=== PATIENT | female | born 1960 | race Caucasian/White ===

== ENCOUNTER 2020-07-25 09:59 | Outpatient (CLI) | payer OTHER, SELFPAY ==
--- NOTE | ~2020-07-25 | NM_ITS ---
EXAMINATION: NM bone SPECT DATE: 07/25/2020 13:52 INDICATION: T12 burst fracture with signal change on MRI. TECHNIQUE: Tc-99m HDP was administered intravenously, the dosage was unavailable at the time of dicta tion and will be added as an addendum. Delayed scintigrams and SPECT imaging was obtained of the tho rax and abdomen. COMPARISON: Thoracic spine MR dated 06/19/[address] dated 06/10/2020 FINDINGS: There is increased uptake throughout the T12 vertebral body corresponding to the relatively recent-ap pearing T12 burst fracture. There is also increased uptake associated with a second relatively recent -appearing fracture extending across the T11 spinous process. Increased uptake associated with a Schm orl's node along the inferior endplate of T9. At each of these locations there is increased fluid sig nal on prior MRI also consistent with relatively recent fracture. Mild increased uptake at the anteri or right first and eighth ribs which could be related to fractures or costochondral calcification. Li anurag degenerative joint centered uptake at the bilateral sternoclavicular cyst at the sternomanubrial articulations. IMPRESSION: 1. Increased uptake associated with relatively recent T12 burst fracture, T11 spinous process fractur e and inferior endplate Schmorl's node at T9. Reviewed, dictated and finalized at location A. IMPRESSION: 1. Increased uptake associated with relatively recent T12 burst fracture, T11 s pinous process fracture and inferior endplate Schmorl's node at T9.
[2020-07-25 10:47] LABS: Basophils Absolute Auto 0.1 K/mm3 (0.0-0.1); Basophils Percent Auto 1.1 % (0.2-1.2); Eosinophils Absolute Auto 0.2 K/mm3 (0-0.3); Eosinophils Percent Auto 2.8 % (0-4.4); Hematocrit 43.6 % (37.0-47.0); Immature Granulocyte Absolute 0.02 K/mm3 (0.00-0.031); Immature Granulocyte Percent A 0.2 % (0-0.5); Lymphocytes Absolute Auto 3.33 K/mm3 (0.9-3.2); Lymphocytes Percent Auto 40.4 % (18.3-44.2); Mean Corpuscular HGB Conc 34.4 g/dl (32-36); Mean Platelet Volume 8.7 fl (7.4-10.4); Monocytes Absolute Auto 0.7 K/mm3 (0.1-0.6); Monocytes Percent Auto 8.7 % (2.6-8.5); Neutrophils Absolute Auto 3.9 K/mm3 (1.3-6.7); Neutrophils Percent Auto 46.8 % (45.5-73.1); Platelet Count Result 338 k/mm3 (150-375); Red Blood Count 4.54 M/mm3 (4.2-5.4); Red Cell Distribution Width 12.1 % (11.5-14.5); White Blood Count 8.3 K/mm3 (4.5-10.0)
[2020-07-25 11:06] LABS: Alanine Aminotransferase 67 U/L (4-35); Albumin Level 4.3 g/dL (3.5-5.1); Alkaline Phosphatase 116 U/L (38-126); Anion Gap 8 mmol/L (8-16); Aspartate Amino Transferase 58 U/L (14-36); Bilirubin,Total 0.4 mg/dL (0.2-1.3); Blood Urea Nitrogen 12 mg/dL (7-17); CRP 0.8 mg/dL (<1.0); Calcium 9.8 mg/dL (8.4-10.2); Carbon Dioxide 26 mmol/L (22-30); Chloride 106 mmol/L (98-107); Estimated Glomerular Filt Rate > 60; Glucose 108 mg/dL (65-105); Potassium 4.3 mmol/L (3.4-5.0); Sodium 140 mmol/L (137-145)
[2020-07-25 11:13] LABS: Erythrocyte Sedimentation Rate 22 mm/hr (0-20)
[2020-07-25 11:18] LABS: T4 Thyroxine 7.83 ug/dL (5.53-11.0)
[2020-07-25 11:32] LABS: Carcinoembryonic Antigen 3.9 ng/mL (0.0-3.0); Total Triiodothyronine (T3) 1.56 NG/ML (0.97-1.69)
[2020-07-29 07:23] LABS: Albumin 4.1 g/dL (3.8-4.8); Alpha 1 Globulin 0.3 g/dL (0.2-0.3); Alpha 2 Globulin 0.7 g/dL (0.5-0.9); Beta 1 Globulin 0.4 g/dL (0.4-0.6); Protein, Total 6.8 g/dL (6.1-8.1)
[2020-07-31 18:51] LABS: Creatinine, Random Urine 51 mg/dL (20-275); Total Protein/Creatinine Ratio 137 mg/g creat (21-161)
== END 2020-07-25 10:00 | disposition home or self-care (01) ==
DX: S22.089A Unspecified fracture of T11-T12 vertebra, initial encounter for closed fracture (principal); X58.XXXA Exposure to other specified factors, initial encounter
CPT/HCPCS: 36415; 78803; 80053; 82378; 82570; 84155; 84156; 84165; 84166; 84436; 84443; 84480; 85025; 85652; 86140; A9561

== ENCOUNTER 2021-10-07 09:06 | Outpatient (CLI) | payer OTHER, SELFPAY ==
--- NOTE | 2021-10-07 | EST_ITS ---
Patient Info Name: Gabriela Lr Age: 60 years : 1960 Gender: Female Ht: 55 in Wt: 150 lbs BSA: 1.66 m2 HR: 84 bpm BP: 154 / 97 mmHg Heart Rhythm: Sinus Rhythm Exam Date: 10/07/2021 10:02 AM Exam Location: [facility] Stress Patient Status: Outpatient Admit Date: 10/07/2021 Staff Ordering Physician: Annamaria, Igor Cruz MD Attending Provider: Annamaria, Igor Cruz MD Exercise Technologist: Grace Myers CT Exercise Physician: Manjeet Rodriges MD Exam Type: CA stress [place] w NM Study Info Indications Z01.818 - Encounter for other preprocedural examination A regadenoson stress test was performed. Summary 1. No abnormal ST/T wave changes with Lexiscan administration. 2. No arrhythmias were observed during the examination. 3. Please correlate with nuclear medicine images, reported separately. 4. No chest discomfort with stress test. Protocol: Lexiscan Stress ECG Details Stage: REST Duration (min): 0 min : 52 sec HR (bpm): 85 SBP (mmHg): 154 DBP (mmHg): 97 Stage: REST Duration (min): 20 min : 51 sec HR (bpm): 83 SBP (mmHg): 154 DBP (mmHg): 97 Stage: STAGE 1 Duration (min): 1 min : 0 sec HR (bpm): 99 SBP (mmHg): 163 DBP (mmHg): 107 Stage: RECOVERY Duration (min): 1 min : 0 sec HR (bpm): 105 SBP (mmHg): 163 DBP (mmHg): 107 Stage: RECOVERY Duration (min): 2 min : 0 sec HR (bpm): 95 SBP (mmHg): 163 DBP (mmHg): 107 Stage: RECOVERY Duration (min): 3 min : 0 sec HR (bpm): 101 SBP (mmHg): 158 DBP (mmHg): 94 Stage: RECOVERY Duration (min): 3 min : 10 sec HR (bpm): 101 SBP (mmHg): 158 DBP (mmHg): 94 Rest HR: 83 bpm Peak HR: 105 bpm Rest Sys BP: 154 mmHg Peak Sys BP: 163 mmHg Max Pred HR: 161 bpm % Max Pred HR: 65 % Target HR: 137 bpm Max RPP: 17,115 bpm*mmHg BP Response: Normal blood pressure response Termination Reason: Completed protocol Cardiac Symptoms: None Total Time: 1 min : 0 sec Rest Iverson BP: 97 mmHg Peak Iverson BP: 107 mmHg Total Dose: 0.4 mg Resting ECG Normal sinus rhythm - normal ECG. Stress ECG No abnormal ST/T wave changes with Lexiscan administration. Arrhythmias No arrhythmias were observed during the examination. Report Signatures
--- NOTE | ~2021-10-07 | NM_ITS ---
EXAMINATION: NM [place] stress w perfusion DATE: 10/07/2021 13:51 INDICATION: Preop. TECHNIQUE: Rest images were obtained following intravenous administration of 9.6 mCi Tc99m tetrofosmi n (Myoview). The patient was infused intravenously with Lexiscan (regadenoson). Then, 30.2 mCi Tc99m tetrofosmin (Myoview) was administered intravenously, and stress images were obtained. Data was recon structed into short axis and horizontal and vertical long axis SPECT images. Gated SPECT images were also obtained. COMPARISON: None. FINDINGS: There is no definite reversible or fixed perfusion abnormality to suggest ischemia or infar ction. There is no segmental wall motion abnormality. Left ventricular ejection fraction measures > 70%. IMPRESSION: 1. No definite ischemia or infarct. 2. Normal left ventricular ejection fraction measuring >70%. Reviewed, dictated and finalized at location A. 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
== END 2021-10-07 09:07 | disposition home or self-care (01) ==
LOC: ANHCARD 09:07
PROVIDERS: Visit Provider Orthopaedic Surgery
DX: Z01.818 Encounter for other preprocedural examination (principal)
CPT/HCPCS: 78452; 93017; A9502; J2785

== ENCOUNTER 2021-10-22 08:50 | Outpatient (CLI) | payer OTHER, SELFPAY ==
[2021-10-22 09:40] LABS: Add Urine Microscopic? YES; Appearance Urine Clear (Clear); Bacteria Urine 2+ /hpf; Bilirubin Urine Negative (Negative); Blood Urine Negative (Negative); Color Urine Yellow (Yellow); Glucose Urine UA Negative (Negative); Hyaline Casts Urine 20-29 /lpf; Ketones Urine Negative (Negative); Leukocyte Esterase Ur Negative LEU/UL (NEGATIVE); Mucus Urine Rare /lpf; Nitrate Urine Positive (Negative); Protein Urine 1+ mg/dL (Negative); RBC Urine 0-2 /hpf (0-2); Specific Grav Ur 1.027 (1.001-1.035); Squamous Epithelial Cell Urine Few /hpf (Few); Urobilinogen Urine Negative mg/dL (<2.0); WBC Urine 0-3 /hpf (0-3)
[2021-10-22 09:42] LABS: Basophils Absolute Auto 0.1 K/mm3 (0.0-0.1); Basophils Percent Auto 1.3 % (0.2-1.2); Eosinophils Absolute Auto 0.3 K/mm3 (0-0.3); Hematocrit 43.9 % (37.0-47.0); Immature Granulocyte Absolute 0.04 K/mm3 (0.00-0.031); Immature Granulocyte Percent A 0.4 % (0-0.5); Lymphocytes Absolute Auto 3.82 K/mm3 (0.9-3.2); Lymphocytes Percent Auto 41.9 % (18.3-44.2); Mean Corpuscular HGB Conc 34.2 g/dl (32-36); Mean Corpuscular Hemoglobin 33.2 pg (26-34); Mean Corpuscular Volume 97.1 fl (80-100); Mean Platelet Volume 8.8 fl (7.4-10.4); Monocytes Absolute Auto 0.7 K/mm3 (0.1-0.6); Monocytes Percent Auto 7.5 % (2.6-8.5); Neutrophils Absolute Auto 4.2 K/mm3 (1.3-6.7); Neutrophils Percent Auto 45.9 % (45.5-73.1); Platelet Count Result 404 k/mm3 (150-375); Red Blood Count 4.52 M/mm3 (4.2-5.4); Red Cell Distribution Width 12.8 % (11.5-14.5); White Blood Count 9.1 K/mm3 (4.5-10.0)
[2021-10-22 09:46] LABS: INR 0.9
[2021-10-22 09:47] LABS: Partial Thromboplastin Time 28.6 SECONDS (22.3-36.8)
[2021-10-22 09:50] LABS: Alanine Aminotransferase 57 U/L (4-35); Albumin Level 4.5 g/dL (3.5-5.1); Alkaline Phosphatase 128 U/L (38-126); Anion Gap 11 mmol/L (8-16); Aspartate Amino Transferase 59 U/L (14-36); Bilirubin,Total 0.5 mg/dL (0.2-1.3); Blood Urea Nitrogen 17 mg/dL (7-17); Calcium 9.8 mg/dL (8.4-10.2); Carbon Dioxide 21 mmol/L (22-30); Chloride 110 mmol/L (98-107); Estimated Glomerular Filt Rate 51; Glucose 124 mg/dL (65-110); Potassium 3.9 mmol/L (3.4-5.0); Sodium 142 mmol/L (137-145)
[2021-10-22 10:10] LABS: Prealbumin 38.2 mg/dL (17.6-36.0)
[2021-10-22 10:15] LABS: Hemoglobin A1C 5.6 % (<5.7)
[2021-10-22 10:19] LABS: Vitamin D 25 Hydroxy 88.5 ng/mL
[2021-10-22 10:30] LABS: Hepatitis B Surface Antigen Negative (Negative)
[2021-10-22 10:31] LABS: HIV 1/2 Ab P24 Ag Result Negative (Negative)
[2021-10-22 10:36] LABS: HAV RESULT Negative (Negative); Hepatitis B Core IgM Result Negative (Negative)
[2021-10-22 10:47] LABS: Hepatitis C Virus Antibody Negative (Negative)
== END 2021-10-22 08:51 | disposition home or self-care (01) ==
PROVIDERS: Visit Provider Orthopaedic Surgery
DX: M47.14 Other spondylosis with myelopathy, thoracic region (principal)
CPT/HCPCS: 36415; 80053; 80074; 81001; 82306; 83036; 84134; 85025; 85610; 85730; 86703; 87077; 87081; 87086; 87186; G0432

== ENCOUNTER 2021-10-29 10:48 | Outpatient (CLI) | payer OTHER, SELFPAY ==
--- NOTE | ~2021-10-29 | XR_ITS ---
XR chest 2V DATE: 10/29/2021 11:09 INDICATION: Preoperative evaluation TECHNIQUE: PA and lateral views COMPARISON: None FINDINGS: Normal heart size. Aortic arch calcification. No hilar or mediastinal enlargement. No pulmonary infiltrate or consolidation, pleural effusion or pulmonary vascular congestion or pneumo thorax. Probable chronic moderate anterior wedge compression fracture deformity of T12. Osteopenia. IMPRESSION: No active cardiopulmonary disease Probable chronic compression fracture deformity of T12 Reviewed, dictated and finalized at location A. 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
== END 2021-10-29 10:49 | disposition home or self-care (01) ==
LOC: ANHIMG 10:54
DX: Z01.818 Encounter for other preprocedural examination (principal)
CPT/HCPCS: 71046

== ENCOUNTER 2021-11-10 10:47 | Outpatient (CLI) | payer OTHER, SELFPAY ==
[2021-11-10 11:18] LABS: Basophils Absolute Auto 0.1 K/mm3 (0.0-0.1); Basophils Percent Auto 0.9 % (0.2-1.2); Eosinophils Absolute Auto 0.2 K/mm3 (0-0.3); Eosinophils Percent Auto 2.6 % (0-4.4); Hematocrit 43.7 % (37.0-47.0); Hemoglobin 14.7 g/dL (12.0-15.0); Immature Granulocyte Absolute 0.04 K/mm3 (0.00-0.031); Immature Granulocyte Percent A 0.4 % (0-0.5); Lymphocytes Absolute Auto 3.21 K/mm3 (0.9-3.2); Lymphocytes Percent Auto 35.2 % (18.3-44.2); Mean Corpuscular HGB Conc 33.6 g/dl (32-36); Mean Corpuscular Hemoglobin 33.2 pg (26-34); Mean Corpuscular Volume 98.6 fl (80-100); Mean Platelet Volume 8.5 fl (7.4-10.4); Monocytes Absolute Auto 0.9 K/mm3 (0.1-0.6); Monocytes Percent Auto 9.4 % (2.6-8.5); Neutrophils Absolute Auto 4.7 K/mm3 (1.3-6.7); Neutrophils Percent Auto 51.5 % (45.5-73.1); Platelet Count Result 329 k/mm3 (150-375); Red Blood Count 4.43 M/mm3 (4.2-5.4); Red Cell Distribution Width 12.6 % (11.5-14.5); White Blood Count 9.1 K/mm3 (4.5-10.0)
[2021-11-10 11:27] LABS: Add Urine Microscopic? YES; Appearance Urine Clear (Clear); Bacteria Urine Trace /hpf; Bilirubin Urine 1+ (Negative); Blood Urine Negative (Negative); Color Urine Yellow (Yellow); Glucose Urine UA Negative (Negative); Ketones Urine Negative (Negative); Leukocyte Esterase Ur Negative LEU/UL (NEGATIVE); Mucus Urine Rare /lpf; Nitrate Urine Negative (Negative); Protein Urine Negative (Negative); Specific Grav Ur 1.027 (1.001-1.035); Squamous Epithelial Cell Urine Few /hpf (Few); Urobilinogen Urine Negative mg/dL (<2.0); WBC Urine 0-3 /hpf (0-3)
[2021-11-10 11:34] LABS: INR 0.9; Prothrombin Time 12.1 Seconds (11.1-14.7)
[2021-11-10 11:35] LABS: Partial Thromboplastin Time 28.4 SECONDS (22.3-36.8)
== END 2021-11-10 10:48 | disposition home or self-care (01) ==
LOC: ANHLAB 10:54
PROVIDERS: Visit Provider Orthopaedic Surgery
DX: Z00.00 Encounter for general adult medical examination without abnormal findings (principal)
CPT/HCPCS: 36415; 81001; 85025; 85610; 85730; 87086

== ENCOUNTER 2022-02-04 09:33 | Outpatient (CLI) | payer OTHER, SELFPAY ==
[2022-02-04 10:37] LABS: Bilirubin Urine Negative (Negative); Blood Urine Negative (Negative); Color Urine Yellow (Yellow); Glucose Urine UA Negative (Negative); Ketones Urine Negative (Negative); Leukocyte Esterase Ur Negative LEU/UL (Negative); Nitrate Urine Negative (Negative); Protein Urine Trace mg/dL (Negative); Specific Grav Ur 1.025 (1.001-1.035); Urobilinogen Urine 0.2 mg/dL (<2.0); pH Urine 5.5 (5.0-9.0)
[2022-02-04 10:38] LABS: Basophils Absolute Auto 0.1 K/mm3 (0.0-0.1); Basophils Percent Auto 1.1 % (0.2-1.2); Eosinophils Absolute Auto 0.3 K/mm3 (0-0.3); Eosinophils Percent Auto 3.2 % (0-4.4); Hematocrit 43.8 % (37.0-47.0); Hemoglobin 14.8 g/dL (12.0-15.0); Immature Granulocyte Absolute 0.04 K/mm3 (0.00-0.031); Immature Granulocyte Percent A 0.4 % (0-0.5); Lymphocytes Absolute Auto 4.07 K/mm3 (0.9-3.2); Lymphocytes Percent Auto 41.2 % (18.3-44.2); Mean Corpuscular HGB Conc 33.8 g/dl (32-36); Mean Corpuscular Hemoglobin 33.2 pg (26-34); Mean Corpuscular Volume 98.2 fl (80-100); Mean Platelet Volume 9.1 fl (7.4-10.4); Monocytes Absolute Auto 0.8 K/mm3 (0.1-0.6); Neutrophils Absolute Auto 4.6 K/mm3 (1.3-6.7); Neutrophils Percent Auto 46.1 % (45.5-73.1); Platelet Count Result 360 k/mm3 (150-375); Red Blood Count 4.46 M/mm3 (4.2-5.4); Red Cell Distribution Width 12.5 % (11.5-14.5); White Blood Count 9.9 K/mm3 (4.5-10.0)
[2022-02-04 10:40] LABS: Add Urine Microscopic? YES; Appearance Urine Sl Cloudy (Clear)
[2022-02-04 10:46] LABS: Prothrombin Time 12.6 Seconds (11.1-14.7)
[2022-02-04 10:47] LABS: Partial Thromboplastin Time 29.4 SECONDS (22.3-36.8)
[2022-02-04 10:52] LABS: Bacteria Urine Trace /hpf; Mucus Urine Rare /lpf; RBC Urine 0-2 /hpf (0-2); Squamous Epithelial Cell Urine Many /hpf (Few); WBC Urine 0-3 /hpf
[2022-02-04 11:16] LABS: Alanine Aminotransferase 75 U/L (4-35); Albumin Level 4.7 g/dL (3.5-5.1); Alkaline Phosphatase 129 U/L (38-126); Anion Gap 9 mmol/L (8-16); Aspartate Amino Transferase 76 U/L (14-36); Bilirubin,Total 0.7 mg/dL (0.2-1.3); Blood Urea Nitrogen 15 mg/dL (7-17); Calcium 9.2 mg/dL (8.4-10.2); Carbon Dioxide 24 mmol/L (22-30); Chloride 108 mmol/L (98-107); Estimated Glomerular Filt Rate > 60; Glucose 118 mg/dL (65-110); Potassium 4.1 mmol/L (3.4-5.0); Sodium 141 mmol/L (137-145)
== END 2022-02-04 09:34 | disposition home or self-care (01) ==
LOC: ANHLAB 09:36
PROVIDERS: Visit Provider Orthopaedic Surgery
DX: M51.14 Intervertebral disc disorders with radiculopathy, thoracic region (principal)
CPT/HCPCS: 36415; 80053; 81001; 85025; 85610; 85730

== ENCOUNTER 2022-03-04 11:21 | Outpatient (CLI) | payer OTHER, SELFPAY ==
[2022-03-04 12:03] LABS: Basophils Absolute Auto 0.1 K/mm3 (0.0-0.1); Basophils Percent Auto 0.9 % (0.2-1.2); Eosinophils Absolute Auto 0.3 K/mm3 (0-0.3); Eosinophils Percent Auto 2.6 % (0-4.4); Hematocrit 37.6 % (37.0-47.0); Immature Granulocyte Absolute 0.04 K/mm3 (0.00-0.031); Immature Granulocyte Percent A 0.4 % (0-0.5); Lymphocytes Absolute Auto 3.09 K/mm3 (0.9-3.2); Lymphocytes Percent Auto 30.9 % (18.3-44.2); Mean Corpuscular HGB Conc 31.9 g/dl (32-36); Mean Corpuscular Hemoglobin 31.9 pg (26-34); Monocytes Absolute Auto 1.1 K/mm3 (0.1-0.6); Monocytes Percent Auto 11.1 % (2.6-8.5); Neutrophils Absolute Auto 5.4 K/mm3 (1.3-6.7); Neutrophils Percent Auto 54.1 % (45.5-73.1); Nucleated Red Blood Cells Perc 0.3 % (0.0-0.2); Platelet Count Result 555 k/mm3 (150-375); Red Blood Count 3.76 M/mm3 (4.2-5.4); Red Cell Distribution Width 12.8 % (11.5-14.5)
[2022-03-04 12:16] LABS: Alanine Aminotransferase 25 U/L (6-35); Albumin Level 4.3 g/dL (3.5-5.1); Alkaline Phosphatase 140 U/L (38-126); Anion Gap 7 mmol/L (8-16); Aspartate Amino Transferase 40 U/L (14-36); Bilirubin,Total 0.3 mg/dL (0.2-1.3); Blood Urea Nitrogen 8 mg/dL (7-17); CRP 7.3 mg/dL (<1.0); Calcium 9.2 mg/dL (8.4-10.2); Carbon Dioxide 27 mmol/L (22-30); Chloride 103 mmol/L (98-107); Estimated Glomerular Filt Rate > 60; Glucose 104 mg/dL (65-110); Potassium 3.6 mmol/L (3.4-5.0); Sodium 137 mmol/L (137-145)
[2022-03-04 12:21] LABS: Prealbumin 14.2 mg/dL (17.6-36.0)
[2022-03-04 12:29] LABS: Erythrocyte Sedimentation Rate > 140 mm/hr (0-20)
== END 2022-03-04 11:22 | disposition home or self-care (01) ==
PROVIDERS: PCP Physician Assistant
DX: Z98.1 Arthrodesis status (principal)
CPT/HCPCS: 36415; 80053; 84134; 85025; 85652; 86140

== ENCOUNTER 2022-03-10 10:50 | Outpatient (CLI) | payer OTHER, SELFPAY ==
[2022-03-10 11:36] LABS: Basophils Absolute Auto 0.1 K/mm3 (0.0-0.1); Eosinophils Absolute Auto 0.3 K/mm3 (0-0.3); Eosinophils Percent Auto 2.5 % (0-4.4); Hematocrit 41.2 % (37.0-47.0); Hemoglobin 13.1 g/dL (12.0-15.0); Immature Granulocyte Absolute 0.04 K/mm3 (0.00-0.031); Immature Granulocyte Percent A 0.4 % (0-0.5); Lymphocytes Percent Auto 28.7 % (18.3-44.2); Mean Corpuscular HGB Conc 31.8 g/dl (32-36); Mean Corpuscular Hemoglobin 31.6 pg (26-34); Mean Corpuscular Volume 99.5 fl (80-100); Mean Platelet Volume 8.6 fl (7.4-10.4); Monocytes Absolute Auto 0.9 K/mm3 (0.1-0.6); Monocytes Percent Auto 8.4 % (2.6-8.5); Platelet Count Result 579 k/mm3 (150-375); Red Blood Count 4.14 M/mm3 (4.2-5.4); Red Cell Distribution Width 12.6 % (11.5-14.5); White Blood Count 10.1 K/mm3 (4.5-10.0)
[2022-03-10 11:51] LABS: Alanine Aminotransferase 43 U/L (6-35); Albumin Level 4.4 g/dL (3.5-5.1); Alkaline Phosphatase 153 U/L (38-126); Anion Gap 9 mmol/L (8-16); Aspartate Amino Transferase 75 U/L (14-36); Bilirubin,Total 0.2 mg/dL (0.2-1.3); Blood Urea Nitrogen 9 mg/dL (7-17); CRP 1.8 mg/dL (<1.0); Calcium 9.5 mg/dL (8.4-10.2); Carbon Dioxide 24 mmol/L (22-30); Chloride 108 mmol/L (98-107); Estimated Glomerular Filt Rate > 60; Glucose 125 mg/dL (65-110); Sodium 141 mmol/L (137-145)
[2022-03-10 11:55] LABS: Prealbumin 26.5 mg/dL (17.6-36.0)
[2022-03-10 12:24] LABS: Erythrocyte Sedimentation Rate 89 mm/hr (0-20)
== END 2022-03-10 10:51 | disposition home or self-care (01) ==
PROVIDERS: PCP Physician Assistant
DX: M43.26 Fusion of spine, lumbar region (principal)
CPT/HCPCS: 36415; 80053; 84134; 85025; 85652; 86140

== ENCOUNTER 2022-03-17 12:01 | Outpatient (CLI) | payer OTHER, SELFPAY ==
[2022-03-17 13:06] LABS: Alanine Aminotransferase 36 U/L (6-35); Albumin Level 4.1 g/dL (3.5-5.1); Alkaline Phosphatase 160 U/L (38-126); Anion Gap -5 mmol/L (8-16); Aspartate Amino Transferase 48 U/L (14-36); Basophils Absolute Auto 0.1 K/mm3 (0.0-0.1); Basophils Percent Auto 1.3 % (0.2-1.2); Bilirubin,Total 0.2 mg/dL (0.2-1.3); Blood Urea Nitrogen 13 mg/dL (7-17); CRP 1.5 mg/dL (<1.0); Calcium 9.3 mg/dL (8.4-10.2); Carbon Dioxide 34 mmol/L (22-30); Chloride 107 mmol/L (98-107); Eosinophils Absolute Auto 0.4 K/mm3 (0-0.3); Eosinophils Percent Auto 4.6 % (0-4.4); Estimated Glomerular Filt Rate > 60; Glucose 100 mg/dL (65-110); Hematocrit 40.6 % (37.0-47.0); Hemoglobin 13.1 g/dL (12.0-15.0); Immature Granulocyte Absolute 0.02 K/mm3 (0.00-0.031); Immature Granulocyte Percent A 0.2 % (0-0.5); Lymphocytes Absolute Auto 3.57 K/mm3 (0.9-3.2); Lymphocytes Percent Auto 40.1 % (18.3-44.2); Mean Corpuscular HGB Conc 32.3 g/dl (32-36); Mean Corpuscular Hemoglobin 31.6 pg (26-34); Mean Corpuscular Volume 98.1 fl (80-100); Mean Platelet Volume 9.2 fl (7.4-10.4); Monocytes Absolute Auto 0.8 K/mm3 (0.1-0.6); Neutrophils Percent Auto 44.8 % (45.5-73.1); Platelet Count Result 384 k/mm3 (150-375); Potassium 3.8 mmol/L (3.4-5.0); Red Blood Count 4.14 M/mm3 (4.2-5.4); Red Cell Distribution Width 12.5 % (11.5-14.5); Sodium 136 mmol/L (137-145); White Blood Count 8.9 K/mm3 (4.5-10.0)
[2022-03-17 13:12] LABS: Prealbumin 32.6 mg/dL (17.6-36.0)
[2022-03-17 14:13] LABS: Erythrocyte Sedimentation Rate 56 mm/hr (0-20)
== END 2022-03-17 12:02 | disposition home or self-care (01) ==
LOC: ANHLAB 12:03
PROVIDERS: PCP Physician Assistant; Visit Provider Orthopaedic Surgery
DX: M54.16 Radiculopathy, lumbar region (principal)
CPT/HCPCS: 36415; 80053; 84134; 85025; 85652; 86140

== ENCOUNTER 2024-12-07 09:50 | Inpatient (IN) | payer BC, SELFPAY ==
[2024-12-07] VITALS (8 sets, daily range): BP systolic 116–145; BP diastolic 45–100; PULSE 82–107; RESP 16–22; TEMP 36.3–37.2; O2SAT 91–96; BMI 26.1
--- NOTE | ~2024-12-07 | XR_ITS ---
EXAMINATION: XR chest 1V portable DATE: 12/11/2024 11:43 INDICATION: Shortness of breath. TECHNIQUE: A single frontal view of the chest was obtained. COMPARISON: Chest 2 views 10/29/2021 FINDINGS: There are airspace opacities at right lung base. A calcified right lung nodule is consisten t with old granulomatous disease. There is a small right pleural effusion. No pneumothorax. The heart size is normal. There are changes of posterior fusion procedure in the lumbar spine. IMPRESSION: 1. Airspace opacities at right lung base, consistent with atelectasis versus pneumonia. 2. Small right pleural effusion. Reviewed, dictated and finalized at location A. OR WATER/WASTEWATER ENGINEER IMPRESSION: 1. Airspace opacities at right lung base, consistent with atelectasis versus pn eumonia. 2. Small right pleural effusion.
--- NOTE | ~2024-12-07 | CT_ITS ---
EXAMINATION: CT lumbar spine wo con DATE: 12/07/2024 10:43 INDICATION: Low back pain. Fall. TECHNIQUE: Computed tomography (CT) of the lumbar spine was performed without intravenous contrast. A utomated exposure control and iterative reconstruction technique were employed. The dose-length produ ct was 654.87 mGy-cm. COMPARISON: Chest 2 views 10/29/2021 FINDINGS: There is 12 degrees levoscoliosis of thoracolumbar spine. There is a chronic burst fracture of T12 with 3/5 loss of height. There are changes of posterior fusion procedure at T12-L1 with pedic le screws. There is a burst fracture of L2 with 2/5 loss of height and retropulsion of bone 4 mm into central spinal canal. There is mildly decreased disc height at L2-L3. The following disc levels are specifically discussed: L1-L2: The disc does not extend beyond the endplate margin. There is moderate bilateral facet joint o steoarthritis. There is no neural foraminal stenosis. There is no central canal stenosis. L2-L3: The disc is bulging. There is mild bilateral facet joint osteoarthritis. There is mild left ne ural foraminal stenosis. There is mild central canal stenosis. L3-L4: The disc is bulging. There is mild bilateral facet joint osteoarthritis. There is mild bilater al neural foraminal stenosis. There is mild central canal stenosis. L4-L5: The disc is bulging. There is mild bilateral facet joint osteoarthritis. There is mild bilater al neural foraminal stenosis. There is mild central canal stenosis. L5-S1: The disc is bulging. There is severe bilateral facet joint osteoarthritis. There is mild bilat eral neural foraminal stenosis. There is mild central canal stenosis. IMPRESSION: 1. Acute L2 burst fracture. 2. Mild lumbar spondylosis. 3. Posterior fusion procedure at T12-L1. 4. Thoracolumbar levoscoliosis. Reviewed, dictated and finalized at location A. LES AND REPAIRS PREPARER
[2024-12-07] MEDS: diazePAM INJ (*CRX) 10 MG/2 ML SYRINGE 2.5 MG IV PUSH (10:54)
--- OUTSIDE RECORDS SUMMARY | 2024-12-07 10:56 | XMS_ITS | Data Portability ---
Author Organization [facility] [employer], Main Office Address [address] [place] [address] Assessment No assessment recorded. Plan of Treatment Reminders Order Date Submit Date Provider Last Modified By Organization Details Last Modified Time Details Appointments None recorded. Lab lipase, serum or plasma [address] (Lab), [address] [place], [address], 09:44:28 amylase, serum or plasma [address] (Lab), [address] [place], [address], 4 09:44:44 CBC [address] (Lab), [address] [place], [address], 4 09:44:53 hepatic function panel, serum [address] (Lab), [address] [place], [address], 4 09:45:02 BMP, serum or plasma [address] (Lab), [address] [place], [address], 4 09:45:11 lipid panel, serum 2023 024 [email or web address] [facility] (Lab), [address] [place], [address], 4 09:45:21 urinalysis, dipstick 2022 023 5 [facility] [address], [place], [address], 3 13:52:48 culture, urine 2022 023 [facility] (Lab), [address] [place], [address], 3 07:37:12 Referral gastroenter ologist referral - Please call patient to schedule an appointment . Thank you. 2023 024 [email or web address] Latisha Reinoso MD, [address] [facility], [place], [address], 4 08:42:39 Procedures None recorded. Surgeries None recorded. Imaging None recorded. Medication Orders amitriptyli ne 25 mg tablet 2023 024 [facility] [address]25, [address], [place], [address], 4 15:37:26 ondansetron 8 mg disintegrat ing tablet 2023 024 [facility]25, [address], [place], [address], 4 09:32:38 neomycin-po lymyxin-hyd rocort 3.5 mg-10,000 unit/mL-1 % ear drops,susp 2022 023 [facility]25, [address], [place], [address], 3 15:46:25 prednisone 20 mg tablet 2022 023 [email or web address] [facility] [address]25, [address], [place], [address], 4 09:09:08 Chantix Starting Month Box 0.5 mg (11)-1 mg (42) tablets in dose pack 2022 023 [facility] [address], [address], [place], [address], 3 15:46:20 Bactrim DS 800 mg-160 mg tablet [address], [address], [place], [address], 3 15:28:08 varenicline tartrate 0.5 mg (11)-1 mg (42) tablets in a dose pack [address], [address], [place], [address], 3 15:28:55 famotidine 20 mg tablet 2022 023 [email or web address] 1 [facility] 2425, [address], [place], [address], 3 15:43:10 losartan 50 mg-hydrochl orothiazide 12.5 mg tablet 2022 023 [facility] [address], [address], [place], [address], 3 11:31:22 Patient TargetsNo targets recorded. Patient Instructions Encounter Date Encounter Id Patient Instructions Last Modified By Organization Details Last Modified Time 06/30/2023 [id number] smoking cessatio n counseling, greater than 3 minutes up to 10 minutes* [email or web address] Not available 08/06/2023 13:53:36 08/16/2024 [id number] PT WITH N/V 5/7 DAYS X 6 MTHS . NOT REPSONDING TO ZOFRAN AND PETERSON CANDY. DDX : [facility] . TRY AMITRIPTYLLINE 25 MG AT BED TIME . RECOMMEND AN EGD . RISKS BENEFITS AND COMPLICATIONS WERE EXPLAINED TO PT . ( BLEEDING , PERFORATION , INFECTION , ) PT VERBALIZES UNDERSTANDING AND IS WILLING TO PROCEDE . 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 Thank you. Referring Physician: Solomon Domínguez, Family Medicine, Encounter Date: 06/08/2024 Results Created Date Observation Date Name Description Value Unit Range Abnormal Flag Note LastModifiedBy Organization Detail LastModifiedTime 07/28/2007/28/2023 urina lysis , dipst ick Leukocytes (reference range: negative digna/ l) Negati ve Not Available [address], [place], [address], 07/28/2023 11:41:36 07/28/2007/28/2023 urina lysis , dipst ick Nitrite (reference rage: negative mg/dl) negati ve Not Available [address], [place], [address], 07/28/2023 11:41:36 07/28/2007/28/2023 urina lysis , dipst ick Urobilinogen (reference range: 0.2-1 mg/dl) 0.2 Not Available [address], [place], [address], 07/28/2023 11:41:36 07/28/2007/28/2023 urina lysis , dipst ick Protein (reference range: negative mg/dl) Negati ve Not Available [address], [place], [address], 07/28/2023 11:41:36 07/28/2007/28/2023 urina lysis , dipst ick pH (reference range: 5-7) 5.5 Not Available [address], [place], [address], 07/28/2023 11:41:36 07/28/2007/28/2023 urina lysis , dipst ick Blood (reference range: negative Arnold/ l) Negati ve Not Available [address], [place], [address], 07/28/2023 11:41:36 07/28/2007/28/2023 urina lysis , dipst ick Specific [place] (reference range: 1.005-1.030) 1.015 Not Available [address], [place], [address], 07/28/2023 11:41:36 07/28/2007/28/2023 urina lysis , dipst ick Ketone (reference range: negative mg/dl) Negati ve Not Available [address], [place], [address], 07/28/2023 11:41:36 07/28/2007/28/2023 urina lysis , dipst ick Bilirubin (reference range: negative mg/dl) Negati ve Not Available [address], [place], [address], 07/28/2023 11:41:36 07/28/2007/28/2023 urina lysis , dipst ick Glucose (reference range: negative mg/dl) Negati ve Not Available [address], [place], [address], 07/28/2023 11:41:36 07/28/2007/28/2023 urina lysis , dipst ick Appearance Clear Not Available [facility] [address], [place], [address], 07/28/2023 11:41:36 07/28/2007/28/2023 urina lysis , dipst ick Color Yellow Not Available [facility] [address], [place], [address], 07/28/2023 11:41:36 Result Notes None recorded. Problems Name Problem SNOMED Code Status Onset Date Resolution Date Notes Provider Name and Address Organization Details Recorded Time Gastroesop hageal reflux disease without esophagiti s 540839700 Active 2022 JOSEPH Ness [address], [address], [place], [address] , [employer] 3 16:53:28 Lesion of skin of nose 4517462845318 9103 Active [address], [place], [address] , [employer] 3 16:54:36 Dependent edema 386248271 Active [address], [place], [address] , [employer] 3 16:58:39 Elevated blood-pres sure reading without diagnosis of hypertensi on 857638228 Active 2022 JOSEPH Ness [address], [address], [place], [address] , [employer] 3 17:05:04 Essential hypertensi on 21666991 Active [address], [place], [address] , [employer] 3 11:26:54 Cigarette smoker 76140680 Active 2022 JOSEPH Ness [address], [address], [place], [address] , [employer] [place] [facility] [employer] [facility] 3 11:29:42 Swelling of lower jaw region 057828962 Active 2022 JOSEPH Ness [address], [address], [place], [address] , [place] [facility] [facility] 3 11:39:40 Acute cystitis 80556851 Active 2022 JOSEPH Ness [address], [address], [place], [address] , [employer] [place] [facility] [employer] [facility] 3 11:40:04 Otalgia of left ear 5475547772 Active 2022 TJ Mccann [address], [address], [place], [address] , [place] [facility] [employer] [facility] 3 15:42:38 Nausea 441671197 Active 2022 Ely Jenkins MD [address], [address], [place], [address] , [employer] [place] [facility] [employer] [facility] 3 18:02:08 Nausea and vomiting 45088998 Active 2023 GISSEL Chu [address], [address], [place], [address] , [employer] [place] [facility] [employer] [facility] 4 09:27:36 Abdominal pain 80138700 Active 2023 GISSEL Chu [address], [address], [place], [address] , [employer] [place] [facility] 4 09:34:08 Hypertrigl yceridemia 292655192 Active 2023 GISSEL Chu [address], [address], [place], [address] , [place] [facility] [employer] [facility] 4 15:36:45 Cyclical vomiting syndrome 79282370 Active 2023 Latisha Reinoso MD [address], [address], [place], [address] , [employer] 4 15:35:08 Problem Notes None recorded. Procedures Surgical History Date Name Laterality Status Provider Name and Address Organization Details Recorded Time hysterectomy completed Not Available [employer] 12/24/2022 01:47:12 Imaging Results None recorded. Procedure Notes None recorded. Medical Equipment None Reported. Allergies Allergen ID Allergen Name Allergen Category Reaction Reaction Severity Criticality Documentation Date Start Date Code Code System Note Provider Name and Address Organization Details Recorded Time 65059 Product containin g penicilli n and antibioti c (product) medicatio n Not available Not available Not available 05/27/2023 [id number] SNTRACY Farrell RN [facility], [employer] 3 16:34:43 Medications Name Sig Start Date Stop Date Status Note LastModified by Organization Details LastModified Time fish oil 1000mg cap TAKE 1 CAPSULE BY MOUTH ONCE DAILY FOR 90 DAYS active Not Available Not Available No t Available cyclobenzap rine 10 mg tablet TAKE 1 TABLET BY MOUTH THREE TIMES DAILY NEEDED FOR 90 DAYS active Not Available Not Available No t Available meloxicam 15 mg tablet TAKE 1 TABLET BY MOUTH EVERY DAY 09/01 completed Not Available Not Available Not Available ondansetron HCl 4 mg tablet TAKE 1 TABLET BY MOUTH EVERY 8 HOURS NEEDED FOR NAUSEA active Not Available Not Available No t Available prednisone 20 mg tablet TAKE 3 TABLETS BY MOUTH ONCE DAILY FOR 3 DAYS THEN TAKE 2 TABLETS FOR 3 DAYS, THEN TAKE 1 TABLET FOR 3 DAYS, THEN TAKE 1/2 (ONE-HALF ) TABLET FOR 3 DAYS. THEN STOP 06/08 completed Not Available Not Available Not Available sulfamethox azole 800 mg-trimetho prim 160 mg tablet TAKE 1 TABLET BY MOUTH TWICE DAILY FOR 7 DAYS 09/14 completed Not Available Not Available Not Available hydrocodone 10 mg-acetamin ophen 325 mg tablet Take 1 tablet every 6-8 hours by oral route. 09/14 completed Not Available Not Available Not Available tramadol 50 mg tablet TAKE 1 TABLET BY MOUTH EVERY 6 HOURS, NEEDED FOR PAIN 09/01 completed Not Available Not Available Not Available ondansetron 8 mg disintegrat ing tablet DISSOLVE 1 TABLET BY MOUTH TWICE DAILY NEEDED FOR 30 DAYS active Not Available Not Available No t Available famotidine 20 mg tablet TAKE 1 TABLET BY MOUTH TWICE DAILY active Not Available Not Available No t Available amitriptyli ne 25 mg tablet TAKE 1 TABLET BY MOUTH ONCE DAILY AT BEDTIME FOR NAUSEA AND VOMITING 2024 active Not Available Not Available Not Avai lable oxycodone-a cetaminophe n 10 mg-325 mg tablet TAKE 1-2 TABLETS EVERY 4-6 HOURS NEEDED FOR PAIN. NO ALCOHOL OR DRIVING WHILE TAKING THIS 06/08 completed Not Available Not Available Not Available pantoprazol e 40 mg tablet,edgar yed release TAKE 1 TABLET BY MOUTH ONCE DAILY active Not Available Not Available No t Available morphine 10 mg immediate release tablet Take by oral route. active Not Available Not Available No t Available losartan 50 mg-hydrochl orothiazide 12.5 mg tablet TAKE 1 TABLET BY MOUTH ONCE DAILY active Not Available Not Available No t Available mometasone 0.1 % topical cream APPLY TO NOSE AND SURROUNDI NG AREA DAILY AFTER RADIATION . active Not Available Not Available No t Available neomycin-po lymyxin-hyd rocort 3.5 mg-10,000 unit/mL-1 % ear drops,susp INSTILL 4 DROPS INTO AFFECTED EAR(S) THREE TIMES DAILY active Not Available Not Available No t Available ezetimibe 10 mg tablet TAKE 1 TABLET BY MOUTH ONCE DAILY active Not Available Not Available No t Available rosuvastati n 40 mg tablet TAKE 1 TABLET BY MOUTH ONCE DAILY active Not Available Not Available No t Available escitalopra m 5 mg tablet TAKE 1 TABLET BY MOUTH ONCE DAILY 08/16 completed Not Available Not Available Not Available varenicline tartrate 1 mg tablet TAKE 1 TABLET BY MOUTH TWICE DAILY active Not Available Not Available No t Available varenicline tartrate 0.5 mg (11)-1 mg (42) tablets in a dose pack USE DIRECTED active Not Available Not Available No t Available NovoFine Plus 32 gauge x 1/6 needle FOR USE WITH FORTEO 09/01 completed Not Available Not Available Not Available Fish Oil 1,000 mg (120 mg-180 mg) capsule Take 1 capsule every day by oral route for 90 days. active Not Available Not Available No t Available Vitals Date Recorded Body height Body mass index (BMI) Body weight Body temperature Heart rate Oxygen saturation Oxygen saturation in Arterial blood by Pulse oximetry Systolic blood pressure Diastolic blood pressure Provider Name and Address Organization Details Last Updated DateTime 3 162.56 cm 26.6 kg/m2 29633.8 2 g 97.4 [degF] 112 /min 94 % 94 % 162 mm[Hg] 90 mm[Hg] Mirtha Farrell RN [facility] [employer] [facility] 3 11:11:14 Date Recorded Body height Body mass index (BMI) Body weight Body temperature Heart rate Oxygen saturation Oxygen saturation in Arterial blood by Pulse oximetry Systolic blood pressure Diastolic blood pressure Provider Name and Address Organization Details Last Updated DateTime 3 162.56 cm 26.8 kg/m2 47848.4 1 g 97.7 [degF] 104 /min 99 % 99 % 122 mm[Hg] 78 mm[Hg] Dian avila [facility] [employer] 3 11:18:32 Date Recorded Body height Body mass index (BMI) Body weight Body temperature Heart rate Oxygen saturation Oxygen saturation in Arterial blood by Pulse oximetry Systolic blood pressure Diastolic blood pressure Provider Name and Address Organization Details Last Updated DateTime 3 162.56 cm 26.4 kg/m2 11245.2 2 g 97.2 [degF] 110 /min 98 % 98 % 140 mm[Hg] 82 mm[Hg] Dian avila [facility] [employer] 3 15:27:37 Date Recorded Body height Body mass index (BMI) Body weight Body temperature Heart rate Oxygen saturation Oxygen saturation in Arterial blood by Pulse oximetry Systolic blood pressure Diastolic blood pressure Provider Name and Address Organization Details Last Updated DateTime 4 162.56 cm 25.6 kg/m2 83296.2 6 g 97.9 [degF] 101 /min 98 % 98 % 134 mm[Hg] 70 mm[Hg] Maira Cleveland RN [facility] [employer] 4 09:11:22 Date Recorded Body height Body mass index (BMI) Body weight Heart rate Oxygen saturation Oxygen saturation in Arterial blood by Pulse oximetry Systolic blood pressure Diastolic blood pressure Provider Name and Address Organization Details Last Updated DateTime 4 162.56 cm 24.5 kg/m2 11361.7 1 g 98 /min 99 % 99 % 132 mm[Hg] 72 mm[Hg] [facility] [employer] [facility] 14:46:59 Social History Question Answer Notes LastModified by [employer] Details LastModified Time Tobacco Smoking Status Current Every Day Smoker Kae harrison, [place] - [facility] [employer] [facility] 07/28/2023 11:04:39 What Is Your Level Of Alcohol Consumption? None [id number] Information not available 12/24/2022 What Is Your Level Of Caffeine Consumption? Occasional [id number] Information not available 12/24/2022 In The 14 Days Before Symptom Onset, Have You Had Close Contact With A Laboratory-confir med COVID-19 While That Case Was Ill? No [email or web address] Information not available 07/28/2023 In The 14 Days Before Symptom Onset, Have You Had Close Contact With A Person Who Is Under Investigation For COVID-19 While That Person Was Ill? No Information not available 07/28/2023 What Type Of Diet Are You Following? REGULAR [id number] Information not available 12/24/2022 Which Illicit Or Recreational Drugs Have You Used? Sandy Information not available 07/28/2023 What Is Your Current Pack Years? 10-19packyears [email or web address] Information not available 07/28/2023 How Much Tobacco Do You Smoke? 1 PPW [id number] Information not available 12/24/2022 Do You Use Any Illicit Or Recreational Drugs? Yes [email or web address] Information not available 07/28/2023 Has Tobacco Cessation Counseling Been Provided? No [email or web address] Information not available 07/28/2023 Have You Used IV Drugs? No [email or web address] Information not available 07/28/2023 Do You Have Any Dietary Restrictions? No [email or web address] Information not available 07/28/2023 Do You Or Have You Ever Used Any Other Forms Of Tobacco Or Nicotine? No [email or web address] Information not available 07/28/2023 Sex: Unknown Functional Status Question Answer Note LastModified by Organizat ion Details LastModified Time What is your exercise level? None [id number] Information not available 12/24/2022 Mental Status None recorded. Family History Relationship Description Onset Age of this Age Resolved Age Notes LastModified by Organization Details LastModified Time Mother Fibrosis of lung [email or web address] Not available 12/2022 16:38:32 Notes:lung cancer-brother fa ther- pancreatic lung cancer sister Medical History No medical history recorded. Gynecological History Statement/Question Response Menses Monthly N Current Control Method Menopause Breast Problems no Discharge no Obstetrics History GPAL:G 0 P 0 0 0 0 Past Encounters Encounter ID Performer Location Encounter Start Date Encounter Closed Date Diagnosis/Indication Diagnosis SNOMED-CT Code Diagnosis ICD10 Code Diagnosis Note [id number] [facility] [address] [place] [address] 09/01/2022 00:00:00 09/01/2022 12:27:[id number] [place] [address] 09/15/2022 00:00:00 09/15/2022 13:04:55 [id number] JOSPEH Ness [facility] [address] [facility] [address] [place] [address] 05/27/2023 16:24:34 05/27/2023 17:08:55 Gastroesophageal reflux disease without esophagitis 400727862 K21.9 ChronicNot improved with otc acid reflux meds. Previously got good relief with pantoprazo le.Anti-re flux measures reviewed: avoid spicy foods, recumbency after eating. Small meals recommende d. Take medication on empty stomach with full glass water.Pant oprazole 40mg daily Lesion of skin of nose 0474418260 3345076 J34.89 New problemSus picious lesions on external left nares x 2Will refer to derm for further evaluation /tx. Dependent edema 41398808 4 R60.0 New problemTra ce BLEElevate lower extremitie s, try not to keep legs dependent. Limit salt, pork, caffeine. Try otc compressio n socks. Work on appropriat e water intake. Take diuretics as directed. Elevated blood-pressure reading without diagnosis of hypertension 692232794 R03.0 New finding on exam today.Symp tomatic with headache; however, pt c/o sinus pressure and reports taking sinus medication today.Enco uraged pt to increase water intake, reduce caffeine intake, exercise regularly, decrease/e liminate sodium intake, work on weight loss and stress reductionW ill continue to monitor closely and consider medication if still high next visit. [id number] JOSEPH Ness [facility] Paige alba [address] [address] [place] [address] 06/30/2023 11:03:05 06/30/2023 11:34:32 Essential hypertension 95638241 I10 Not in good controlSym ptomatic with headaches, cp, sob. Pt reports cardiac workup was normal.Sta rt losartan 50mg-hctz 12.5mgEnco uraged pt to increase water intake, reduce caffeine intake, exercise regularly, decrease/e liminate sodium intake, work on weight loss and stress reductionW ill continue to monitor closely Cigarette smoker 0559279 7 F17.210 ChronicEnc ouraged smoking cessation. Smoking cessation counseling and techniques reviewed at length with pt. Literature reviewed. Avoid triggers, support groups. Work on cutting back. Discussed cessation options (counselin g, medication s, e-cigarett es, patches, alternativ e therapies) . Discussed Rx options if needed in the future.Boyd acuna plan to send for LDCT in the near future. Lesion of skin of nose 8228941276 5014335 J34.89 No interval change since last visit.Susp icious lesions on external left nares x 2Referred to derm for further evaluation /tx. Keep upcoming appt. Gastroesop hageal reflux disease without esophagitis 677874569 K21.9 ChronicNot improved with otc acid reflux meds. Previously got good relief with pantoprazo le, but insurance not covering, pt reports she is purchasing otc. Will also give trial of famotidine as well.Anti- reflux measures reviewed: avoid spicy foods, recumbency after eating. Small meals recommende d. Take medication on empty stomach with full glass water.Pant oprazole 40mg daily Dependent edema 53465150 4 R60.0 No change since last visit.Trac e BLEElevate lower extremitie s, try not to keep legs dependent. Limit salt, pork, caffeine. Try otc compressio n socks. Work on appropriat e water intake. Take diuretics as directed. [id number] Epstein [facility] Primary Care Paige alba [address] [facility] [address] [place] [address] 07/28/2023 11:04:03 07/28/2023 11:52:21 Essential hypertension 64354332 I10 Chronic, well controlled Currently asymptomat ic.Continu e losartan 50mg-hctz 12.5mgEnco uraged pt to increase water intake, reduce caffeine intake, exercise regularly, decrease/e liminate sodium intake, work on weight loss and stress reduction. She is planning to quit smoking per below. Prescribainsley Fajardo continue to monitor closely Cigarette smoker 5021468 7 F17.210 ChronicEnc ouraged smoking cessation. Smoking cessation counseling and techniques reviewed at length with pt. Literature reviewed. Avoid triggers, support groups. Work on cutting back. Discussed cessation options (counselin g, medication s, e-cigarett es, patches, alternativ e therapies) . Will start vareniclin e. Discussed the need to start taking one week prior to quit date. Will follow up in one month. Swelling o f lower jaw region 327941011 R22.0 AcuteSwell ing in lower jaw is not painful and she has no concerning symptoms like neuro deficits, hearing abnormalit ies, or dental pain. Will prescribe bactrim for suspected UTI which will also aid soft tissue infection if present. Recommend she follows up with her dermatolog ist about the swelling and to go to the ER if she develops neuro symptoms or if the swelling worsens, becomes red, or painful. Acute cystitis 22278043 N30.00 AcuteHas tried OTC azos without alleviatio n to symptoms. Will obtain a UA and send her urine for culture and sensitivit y. She likely has a component of chronic cystitis since she always complains of frequency. Discussed antibiotic prescripti on, need for BRATY diet to prevent/tr eat diarrhea associated with antibiotic use, and limitation of bladder-ir ritating foods/beve rages like caffeine, carbonatio n, and citrus/jenna atoes. [id number] TJ Mccann [facility] Primary Care Paige alba [address] [facility] [address] [place] [address] 09/14/2023 15:18:55 09/14/2023 15:48:44 Cigarette smoker 78812044 F17.210 Pt. wants brand name carlos eduardo. Will send in new script.Adv ised she continue to try and cut back on number of cigarettes weekly. Otalgia of left ear 1010 140412 H92.02 No inner ear infection, some mile erythema in canal.Will do drops and oral steroids. Essential hypertension 44511790 I10 Slightly elevated but patient was taken off pain medication so she is in more pain today.She is also still working on smoking cessation. [id number] Solomon Domínguez, JOSEPH-Parveen [facility] Primary Care [facility] [address] [address] [place] [address] 06/08/2024 08:59:13 06/08/2024 09:41:37 Nausea and vomiting 35072759 R11.2 has been having n/v off and on for approx 2 monthswas given nausea medicineno diarrhea/c onstipatio nreferral to GI given Nausea 699873382 R11.0 Abdominal pain 66820029 R10.9 Hyperlipid emia screening 151849054 Z13.309 [id number] Latisha Reinoso MD [facility] General Surgery [address] [facility] [facility] [address] [place] [address] 08/16/2024 14:44:17 08/16/2024 15:23:12 Cyclical vomiting syndrome 87980468 R11.15 Health Concerns Section Related Observation LastModified by Organization Detai ls LastModified Time None Recorded Concern Status LastModified by Organization Details LastModified Time None Recorded Advance Directives Directive None Recorded Payers Encounter Date Sequence Insurance Name Policy Number Policy Paz Covered Member ID Paz Member ID Guarantor Name 06/30/2023 1 [facility] (MEDICAID REPLACEMENT - HMO) [id number] Gabriela Be [id number] Gabriela F Be 07/28/2023 1 [facility] (MEDICAID REPLACEMENT - HMO) [id number] Gabriela Be [id number] Gabriela F Be 09/14/2023 1 [facility] (MEDICAID REPLACEMENT - HMO) [id number] Gabriela Be [id number] Gabriela F Be 06/08/2024 1 [facility] (MEDICAID REPLACEMENT - HMO) [id number] Gabriela Bullockid [id number] Gabriela Dodge Be 08/16/2024 1 [facility] (MEDICAID REPLACEMENT - HMO) [id number] Gabriela Bullockid [id number] 38 Gabriela Dodge Be Notes Date Note Type Note Provider Name and Address Organization Details Recorded Time 06/30/2023 text/html 06/30/23: 1. Pt in office for 4 week f/u on bp. Pt states she is still getting headaches and having swelling of her ankles. Reports periodic cp, sob, even at rest, but nothing consistent. Reports cardiac workup was normal.2. Pt reports she has an appt coming up with derm to evaluate the lesions on her nose.3. Pt states insurance no longer covering the pantoprazole. Reports she is having to purchase it otc. 05/27/23: 1. Pt in office for problem visit with c/o sore throat for the past week. States she thinks it might be acid reflux. States she has to get up and drink really cold water to soothe it even a little.2. Pt states she has been getting swelling of her ankles for the past few days. JOESPH Ness [address], [place], [address], [facility] [employer] 06/30/2023 19:09:49 07/28/2023 text/html HTN: denies CP, SOB, jaw pain, arm pain, alterations to vision. Dysuria: believes she has a UTI or kidney stone because it cardona when she urinates. Has pelvic pressure that radiates to the back. Denies frequency or discharge. Took azos without relief of symptoms. This has been happening for 2-3 weeks. Facial swelling: swelling to the left jaw. Has been happening for one week. No issues with eating/drinking sour or salty things. No dental pain. Denies alterations in hearing. Tobacco cessation: has thought more about quitting and hasn't set a quit date. Skin lesion: went to dermatology who told her she needed the lesions excised on her nose. She will have separate appointments for the removal of these lesions. JOSEPH Ness [address], [address], [place], [address], [employer] [facility] [employer] 07/28/2023 17:07:30 09/14/2023 text/html Pt. here to follow-up on cigarette smoking. She states the generic chantix does not seem to work as well as the brand chantix she has used in the past. She is still smoking just under 1ppd. She has also had some left ear pain with pain/swelling that radiates into the jaw. TJ Mccann [address], [address] [address], [place], [address], [employer] [facility] [employer] 09/14/2023 15:54:04 06/08/2024 text/html Pt is here for nausea/vomiting GISSEL Chu [address], [address] [address], [place], [address], [employer] [facility] [employer] 06/08/2024 09:38:10 08/16/2024 text/html GABRIELA WAS SEEN IN THE OFFICE TODAY FOR EVALUATION OF PROTRACTED N/V X 6 MTHS . SX ARE SUDDEN IN ONSET . PT SX ARE 5 X WEEKLY AFEW TIMES DAILY . PT REPORTS THAT ZOFRAN DOES NOT HELP . MARIJUANA GUMMIES ALSO DOES NOT WORK. PT HAS GERD BUT SX ARE CONTROLLED WITH PANTOPRAZOLE . SHE HAS ADJUSTED HER DIET . PT STATES THAT SHE HAS LOST 30 LBS X 3 MTHS Latisha Reinoso MD [address], [address] [address], [place], [address], [facility] [employer] 08/16/2024 15:37:22 OBGyn Episode No OBEpisode recorded.
--- OUTSIDE RECORDS SUMMARY | 2024-12-07 10:56 | XMS_ITS | Patient Health Summary ---
Author Organization [facility] [employer] Address [address] [place] [address] Care Team Providers Care Extrusion Die Template Maker Name Role Phone Marisa Boyce Primary Care Pr ovider Igor Yin MD Unavailable [phone] Note from [facility],non-owned Affiliates and Associated Physician Practices is amultiple site organization consisting of ambulatory clinics and hospital sitesin [place], [place] and [place]. This disclosure is being madepursuant to the Care Everywhere program and may not contain all information available regarding this patient. Last updated 18.[facility] Allergies * Penicillins(Rash) -Medium Criticality Medications * Be aware that medications may not be up to date on this document. Alwaysverify current medications with the patient. * POTASSIUM PO Take 1 tablet by mouth once daily * VITAMIN D PO Take 1 tablet by mouth once daily * ebqpogr-qkmenpfjh-hrls 333-133-5 MG tablet Take 1 tablet by mouth once daily * omeprazole (PRILOSEC) 20 MG capsule Take 20 mg by mouth daily before breakfast * oxyCODONE-acetaminophen (PERCOCET) 10-325 MG tablet(Started 02/20/2022) Take 1 (one) tablet by mouth every 4 hours as needed Reasons: May use in addition to Oxycodone PRN for severe breakthough pain * cyclobenzaprine (FLEXERIL) 10 MG tablet(Started 02/20/2022) Take 1 (one) tablet by mouth every 8 hours as needed for Muscle Spasms Active Problems Problem Noted Date Diagnosed Date Burst fracture of T12 vertebra with delayed heal ing 02/19/2022 Upper back pain 02/19/2022 Immunizations * COVID OTONIEL PRIMARY 18+YR(Given 03/30/2021) Social History Tobacco Use Types Packs/Day Years Used Date Smoking Tobacco: Every Day Cigarettes 0.5 20 Smokeless Tobacco: Never Tobacco Cessation:Ready to Q uit: No; Counseling Given: No Alcohol Use Standard Drinks/Week Comments Never 0 (1 standard drink = 0.6 oz pur e alcohol) AUDIT-C Answer Date Recorded Q1: How often do you have a drink containing alcohol? Never 02/19/2022 Q2: How many drinks containi ng alcohol do you have on a typical day when you are drinking? Patient does not drink Q3: How often do you have si x or more drinks on one occasion? Never 02/19/2022 Hunger Vital Sign Answer Date Recorded Within the past 12 months, y ou worried that your food would run out before you got the money to buy more. Never true 02/21/20 22 Within the past 12 months, t he food you bought just didn't last and you didn't have money to get more. Never true 02/20/2022 Sex and Gender Information Value Date Recorded Sex Assigned at Not on file Gender Identity Not on file Sexual Orientation Not on file Last Filed Vital Signs Vital Sign Reading Time Taken Comments Blood Pressure 147/72 02/20/2022 4:23 PM CDT Pulse 103 02/20/2022 4:23 PM CDT Temperature 37 C (98.6 F) 02/20/2022 4:23 PM CDT Respiratory Rate 20 02/20/2022 11:44 AM CDT Oxygen Saturation 97% 02/20/2022 4:23 PM CDT Inhaled Oxygen Concentration - - Weight 73.5 kg (162 lb) 02/19/2022 8:36 AM CDT Height 162.6 cm (5' 4 ) 02/19/2022 8:36 AM CDT Body Mass Index 27.81 02/19/2022 8:36 AM CDT Medical Devices Implanted Type Area Rubber Calender Helper Device Identifier Shelf Expiration Date Model / Serial / Lot Kit Bngf 26mm 18mm Infs Lg Spne Rhbmp-2 Implanted:Qty: 1 on 02/19/2022 by Igor Yin MD at [facility] Lumbar [employer] 06/24/2023 [id number] / / [id number] Screw Set Ti 4.75mm Spne Nonster Implanted:Qty: 6 on 02/19/2022 by Igor Yin MD at [facility] Lum[employer] [id number] / / Hu Spnl 90mm 4.75mm Cd Hzn Solera Crv Implanted:Qty: 2 on 02/19/2022 by Igor Yin MD at [facility] Lumbar [employer] [id number] / / Plate Spne 30-32mm Cd Hzn Solera X10 Implanted:Qty: 1 on 02/19/2022 by Igor Yin MD at [facility] Lumbar [employer] [id number] / / Floseal Hemostatic Matrix 10ml Implanted:Qty: 1 on 02/19/2022 by Igor Yin MD at [facility] Lumbar [employer] 05/29/2023 [id number] / / [id number] Regan Bone Void 10cc 20cc Ca Slf Stimulan Implanted:Qty: 1 on 02/19/2022 by Igor Yin MD at [facility] Lumbar [employer] 04/23/2024 [id number] / / [id number] Graft Bone Infs Rhbmp-2 Bvn Clgn Lg 8ml Implanted:Qty: 1 on 02/19/2022 by Igor Yin MD at [facility] Lumbar [employer] 04/23/2023 [id number] / / [id number] Screw 4.75 Aiken Mas 5.5x55 Cc Implanted:Qty: 1 on 02/19/2022 by Igor Yin MD at [facility] Lumbar [employer] 07/29/2026 [id number] / / [id number] Screw 4.75 Aiken Mas 5.5x55 Cc Implanted:Qty: 1 on 02/19/2022 by Igor Yin MD at [facility] Lumbar [employer] 07/29/2026 [id number] / / [id number] Graft Bone Grftn Dbm Strp [id number] - [id number] Implanted:Qty: 1 on 02/19/2022 by Igor Yin MD at [facility] Lumbar [employer] 01/20/2025 [id number] / [id number] / Graft Bone Canc 30ml Crsh Chp Frzn Implanted:Qty: 1 on 02/19/2022 by Igor Yin MD at [facility] Lumbar [employer] 04/28/2025 [id number] / / [id number] Screw 4.5mm 45mm 2 Ld Thrd Frm Ma Clr Cd Implanted:Qty: 4 on 02/19/2022 by Igor Yin MD at [facility] Lumbar [employer] [id number] / / Procedures * CARDIAC RHYTHM STRIP ORDER(Performed 02/23/2022) * APHERESIS/TRANSFUSION ORDER(Performed 02/23/2022) * VAS BILATERAL VENOUS DUPLEX LE(Performed 02/20/2022) Performed for Burst fracture of T12 vertebra with delayed healing * BASIC METABOLIC PANEL (CALCIUM TOTAL)(Performed 02/20/2022) * XR LUMBAR SPINE 2 OR 3VW(Performed 02/19/2022) Performed for Burst fracture of T12 vertebra with delayed healing * FL OARM SURGERY(Performed 02/19/2022) Performed for Upper back pain * ARTERIAL LINE NOTE(Performed 02/19/2022) * FUSION TRANSFORAMINAL LUMBAR INTERBODY (TLIF)(Performed 02/19/2022) Performed for m47.14 * CARDIAC EKG ORDER(Performed 12/06/2021) * EKG 12-LEAD(Performed 10/28/2021) Performed for Pre-op testing * DEXA BONE DENSITY AXIAL SKELETON(Performed 04/03/2021) Performed for Screening for osteoporosis * CYTOLOGY NON-PLANNING LEAD PANEL(Performed 09/03/1998) Results * CARDIAC RHYTHM STRIP ORDER (02/23/2022 10:06 PM CDT) Narrative 02/23/2022 10:06 PM CDT Ordered by an unspecified provider. Scanned Document CARDIAC SERVICES ORD ERABLES * APHERESIS/TRANSFUSION ORDER (02/23/2022 10:06 PM CDT) Narrative 02/23/2022 10:06 PM CDT Ordered by an unspecified provider. Scanned Document NURSING - VITAL SIGN S AND ASSESSMENT * VAS BILAT LE VENOUS DUPLEX (02/20/2022 10:25 AM CDT) Anatomical Region Laterality Modality Lower Extremity Ultrasound 02/20/2022 10:2 2 AM CDT Narrative Procedure Note Dhaval Orta MD - 02/20/2022 [place] [address] Lower Extremity Venous Ultrasound Report Pat.Name: GABRIELA FELIPE Pat.ID: [id number] .Date: 02/20/2022 Refer.MD: chelly Lott Exam Time: 10:22:00 AM Study Type:LE Venous Age: 4 1960,61Y Sex: FEMALE Sonogrphr[facility] Pat. Stat.:[facility] Room: 2219 Reason for Study: + D-Dimer Procedures: Lower Extremity Venous - Bilateral Race: [facility] [place] Visit ID: [id number] ++++++++++++++++++++++++++++++++++++ SUMMARY: ++++++++++++++++++++++++++++++++++++ No acute DVT ++++++++++++++++++++++++++++++++++++ FINDINGS: ++++++++++++++++++++++++++++++++++++ Procedure: Venous duplex imaging of both lower extremities was performed using color flow and spectral Doppler analysis. Study Quality: This study is of adequate technical quality. Bilateral: All vessels seen appear patent and compressible. There was spontaneous and phasic flow seen in all the proximal major veins of both lower extremities. Appropriate augmentation with distal compression. Comments: No acute DVT seen. Signed 02/20/2022 12:18 PM Dhaval Orta MD Cehlly Carlo Lott PA-Parveen VASCULAR LAB O RDERABLES * (ABNORMAL) BASIC METABOLIC PANEL (CALCIUM TOTAL) (02/20/2022 5:16 AM CDT) [facility] [address] Glucose 110(H) 70 - 105 mg/dL 02/20/2022 5:52 AM CDT [facility] Sodium 142 136 - 145 mmol/L 02/20/2022 5:52 AM CDT [facility] Potassium 4.4 3.5 - 5.1 mmol/L 02/20/2022 5:52 AM CDT [facility] Chloride 110(H) 98 - 107 mmol/L 02/20/2022 5:52 AM CDT [facility] CO2 25 23 - 31 mmol/L 02/20/2022 5:52 AM CDT [facility] Calcium 8.6 8.4 - 10.4 mg/dL 02/20/2022 5:52 AM T [facility] Anion Gap 7(L) 8 - 18 mmol/L 02/20/2022 5:52 AM CDT [facility] BUN 14 9.8 - 20.1 mg/dL 02/20/2022 5:52 AM CDT [facility] Creatinine 0.85 0.57 - 1.11 mg/dL 02/20/2022 5:52 AM [facility] eGFR by CKD-EPI 78(L) >=90 mL/min/1.7 3 m2 02/20/2022 5:52 AM T [facility] Blood BLOOD SPECIMEN / Unknown Lab Venipuncture / Unknown 02/20/2022 5:16 AM CDT 02/20/2022 5:23 AM CDT Narrative [facility] - 02/20/2022 5:52 AM CDT eGFR result was calculated using the updated CKD-EPI Creatinine Equations (2020). Prior to go live 2021 the eGFR was calculated using the MDRD calculation. Please note Reference Range change. Mariajose Perry MD LAB - CHEMISTRY ELEAZAREstrellita DAVIS [facility] [address] [address] * XR LUMBAR SPINE 2 OR 3 VW (02/19/2022 6:57 PM CDT) Anatomical Region Laterality Modality Spine Radiographic Delmi ging 02/19/2022 7:42 PM CDT Narrative 02/19/2022 7:45 PM CDT STUDY: X-RAY(s): Lumbar spine, 3 views. HISTORY: Stable burst fracture of t11-T12 vertebra, subsequent encounter for fracture with delayed healing. Postoperative evaluation. COMPARISON: None available. FINDINGS/IMPRESSION: Posterior fusion hardware is seen from T11 to L1. No evidence of hardware failure is seen. There is grossly normal alignment of the visualized thoracolumbar spine. Anterior wedge compression fracture deformity of the T12 vertebral body is seen. *Reading Radiologist: Roxie Stauffer on 02/19/2022 at 7:45 PM Procedure Note Roxie Stauffer MD - 02/19/2022 STUDY: X-RAY(s): Lumbar spine, 3 views. HISTORY: Stable burst fracture of t11-T12 vertebra, subsequent encounter for fracture with delayed healing. Postoperative evaluation. COMPARISON: None available. FINDINGS/IMPRESSION: Posterior fusion hardware is seen from T11 to L1. No evidence of hardware failure is seen. There is grossly normal alignment of the visualized thoracolumbar spine. Anterior wedge compression fracture deformity of the T12 vertebral body is seen. *Reading Radiologist: Roxie Stauffer on 02/19/2022 at 7:45 PM Igor Yin MD DIAGNOSTIC IMAGING O RDERABLES * FL OARM SURGERY (02/19/2022 3:11 PM CDT) Narrative [facility] - 02/19/2022 3:15 PM CDT For details of this study, please see the providers note. Igor Yin MD FLUOROSCOPY ORDERABL ES [facility] [address] [place] [address] * ARTERIAL LINE PERFORMABLE (02/19/2022 12:10 PM CDT) Narrative Harriet Deleon APRN-CRNA - 02/19/2022 12:10 PM CDT Harriet Deleon APRN-CRNA 02/19/2022 12:36 PM Arterial Line Placement Procedure Note Patient Location: OR. Procedure: Arterial Line ([id number]). Procedure Section Indications: continuous blood pressure monitoring. Consent: informed consent was obtained for the procedure and risks of hemorrhage, hematoma, infection and adverse drug reactions were discussed. Skin Prep: Chloraprep. Orientation: Right. Site: radial. Site Identification: palpation. Sterile Technique: mask, cap and sterile gloves. Gauge: 20. Seldinger Technique Used? No Number of Attempts: 1. Line Secured with: tape and Tegaderm. Procedure Tolerance: performed while patient under general anesthesia. Events: none. Procedure Start Time: 02/19/2022 11:22 AM. Procedure End Time: 02/19/2022 11:25 AM. Procedure Total Time: 3 minutes. Patient Sedated? Yes Local Anesthetic Used? No Sedation Types: general anesthesia Staff Section Anesthesia Provider: Harriet Deleon APRN-CRNA, Performed the procedure Provider #1: Braulio Rodarte MD. Braulio Rodarte MD GENERAL ANESTHESIA O RDERABLES * CARDIAC EKG ORDER (12/06/2021 3:14 AM CONTACT CENTER CONSULTANT) Narrative 12/06/2021 3:14 AM CONTACT CENTER CONSULTANT Ordered by an unspecified provider. Scanned Document CARDIAC SERVICES ORD ERABLES * EKG 12-LEAD (10/28/2021 7:58 AM CONTACT CENTER CONSULTANT) Ventricular Rate 99 BPM [facility] Atrial Rate 99 BPM [facility] P-R Interval 134 ms [facility] QRS Duration ms 70 ms [facility] Q-T Interval ms 372 ms [facility] QTC Calculation (Bezet) 477 ms [facility] Calculated P Loiza 45 degrees [facility] Calculated R Loiza 22 degrees [facility] Calculated T Loiza 34 degrees [facility] Interpretation EKG Normal sinus rhythm poor R wave progression Abnormal ECG No previous ECGs available Confirmed by MD CHRISTA, ROHAN El ([id number]) on 10/29/2021 8:06:17 AM [facility] 10/28/2021 7:58 AM CONTACT CENTER CONSULTANT 10/29/2021 8:06 AM CONTACT CENTER CONSULTANT Igro Yin MD ECG ORDERABLES [facility] * DEXA BONE DENSITY AXIAL SKELETON (04/03/2021 10:41 AM CDT) Anatomical Region Laterality Modality Mammography 04/03/2021 10:4 6 AM CDT Narrative 04/03/2021 12:56 PM CDT BONE MINERAL DENSITY STUDY INDICATION: Ovarian failure. FINDINGS: The average bone mineral density from L1 to L4 is 0.725 g/cm2. T-score is -3.8 which is the standard deviations (SD) of the mean for the young adult. The Z-score is -2.8 which is the standard deviations for the mean for age matched control. The average bone mineral density of the total mean neck of hip is 0.633 g/cm2. T-score is -2.9. Z-score is -1.8. ASSESSMENT: The above findings represent significant increased risk of fracture through the spine or femur. WORLD HEALTH ORGANIZATION DEFINITIONS OSTEOPENIA = -1 TO -2.5 SD BELOW T-SCORE OSTEOPOROSIS = LESS THAN -2.5 SD BELOW T-SCORE 1. No significant- < 1 SD below T score 2. Mild - 1 -2.0 SD below T-score 3. Moderate - 2 -2.5 SD below T-score 4. Significant - > 2.5 SD below T-score Edited by Maddy Grady on 04/03/2021 10:52 AM *Reading Radiologist: Alexis Ho on 04/03/2021 at 12:56 PM Procedure Note Alexis Ho MD - 04/03/2021 BONE MINERAL DENSITY STUDY INDICATION: Ovarian failure. FINDINGS: The average bone mineral density from L1 to L4 is 0.725 g/cm2. T-score is -3.8 which is the standard deviations (SD) of the mean for the young adult. The Z-score is -2.8 which is the standard deviations for the mean for age matched control. The average bone mineral density of the total mean neck of hip is 0.633 g/cm2. T-score is -2.9. Z-score is -1.8. ASSESSMENT: The above findings represent significant increased risk of fracture through the spine or femur. WORLD HE[employer] ORGANIZATION DEFINITIONS OSTEOPENIA = -1 TO -2.5 SD BELOW T-SCORE OSTEOPOROSIS = LESS THAN -2.5 SD BELOW T-SCORE 1. No significant- < 1 SD below T score 2. Mild - 1 -2.0 SD below T-score 3. Moderate - 2 -2.5 SD below T-score 4. Significant - > 2.5 SD below T-score Edited by Maddy Grady on 04/03/2021 10:52 AM *Reading Radiologist: Alexis Ho on 04/03/2021 at 12:56 PM Igor Yin MD DEXA ORDERABLES * CYTOLOGY NON-PLANNING LEAD PANEL (09/03/1998 1:30 PM CONTACT CENTER CONSULTANT) Result CASE NUMBER [id number] Comment: ORDERING PHYSICIAN SUPA GUILLEN SPECIMEN TYPE Urine(M) Date 09/04/1998 Specimen Adequacy Satisfactory for Evaluation Cell Pathology Squamous cells, transitional cells, and yeast. No atypia or malignancy. *Diagnosis Yeast present no evidence of atypia or malignancy. *Comment 50 ml. of clear, light yellow fluid. 1 Thin-prep made. Snomed. 09/04/1998 [id number] <1> Pathologist William Ibrahim M.D. MISCELLANEOUS SAMPLES / Unknown 09/03/1998 1:30 PM CONTACT CENTER CONSULTANT 09/04/1998 10:04 AM CONTACT CENTER CONSULTANT Historical Provider LAB - PATHOLOGY/C YTOLOGY ORDERABLES Care Teams Extrusion Die Template Maker Relationship Specialty Start Date End Date Marisa Boyce PA [address] [place] [address] PCP - General Physician Cold Rolling Machine Setter 11/22/16 Igor Yin MD [address] [place] [address] [address] [place] [address] Surgeon Orthopedic Surgery 04/03/21
--- OUTSIDE RECORDS SUMMARY | 2024-12-07 10:57 | XMS_ITS | Clinical Summary ---
Author Organization [facility] Address [address] [address] Care Team Providers Care Work Over Rig Operator Name Role Phone Marisa Boyce Primary Care Pr ovider Igor Yin MD Unavailable [phone] Source Comments [facility],non-owned Affiliates and Associated Physician Practices is amultiple site organization consisting of ambulatory clinics and hospital sitesin [place], [place], [place] and [place]. This disclosure is being madepursuant to the Care Everywhere program and may not contain all information available regarding this patient. Last updated 18.[facility] Allergies Active Allergy Reactions Criticality Noted Date Comments Penicillins Rash Medium 11/22/2016 Medications * Be aware that medications may not be up to date on this document. Alwaysverify current medications with the patient. Medication Sig Dispensed Refills Start Date End Date Status POTASSIUM PO Take 1 tablet by mouth once daily Active VITAMIN D PO Take 1 tablet by mouth once daily Active rwodmqr-geaqeegmn-v inc 333-133-5 MG tablet Take 1 tablet by mouth once daily Active omeprazole (PRILOSEC) 20 MG capsule Take 20 mg by mouth daily before breakfast Active oxyCODONE-acetamino phen (PERCOCET) 10-325 MG tabletIndications:M ay use in addition to Oxycodone PRN for severe breakthough pain Take 1 (one) tablet by mouth every 4 hours as needed Reasons: May use in addition to Oxycodone PRN for severe breakthough pain 12 tablet 02/20/2022 Active cyclobenzaprine (FLEXERIL) 10 MG tablet Take 1 (one) tablet by mouth every 8 hours as needed for Muscle Spasms 02/20/2022 Active Active Problems Problem Noted Date Diagnosed Date Burst fracture of T12 vertebra with delayed heal ing 02/19/2022 Upper back pain 02/19/2022 Immunizations Name Administration Dates Next Due CATRACHITA FREDERICK PRIMARY 18+YR 03/30/2021 Family History Medical History Relation Name Comments Diabetes - Type 2 Brother Cancer - Pancreatic Father Other - Pulmonary/Lung Mother pulmo nary fibrosis Relation Name Status Comments Brother Father Mother Social History Tobacco Use Types Packs/Day Years [...] Mass Index 27.81 02/19/2022 8:36 AM CDT Plan of Treatment Health Maintenance Due Date Last Done Comments COLOGUARD (AGES 45-75) - COL ON CA SCREENING 1961 COLON MONITORING 1961 COLONOSCOPY - COLON CA SCREENING 1961 CT COLONOGRAPHY - COLON CA SCREENING 1961 Colorectal Cancer Screening 1961 FIT - COLON CA SCREENING 1961 FLEX SIG - COLON CA SCREENING 1961 LIPID TESTING 1961 PAP SMEAR 1961 HIV SCREENING 1976 HEPATITIS C SCREENING 12/27/1979 DTAP/TDAP/TD VACCINES (1 - Tdap) 1980 PNEUMOCOCCAL VACCINE 50+ (1 of 2 - PCV) 1980 PNEUMOCOCCAL VACCINE (1 of 2 - PCV) 1980 ZOSTER VACCINE (1 of 2) 01/01/2012 MAMMOGRAM 06/10/2022 06/10/2020 COVID-19 VACCINE (2 - 2023-2 5 season) 2024 03/30/2021 INFLUENZA VACCINE (#1) 2024 DEPRESSION SCREENING 10/25/2024 Respiratory Syncytial Virus (RSV) Vaccine Pt: or over 60 yrs (1 - 1-dose 75+ series) 2036 HEPATITIS B VACCINE Aged Out No longe r eligible based on patient's age to complete this topic HIB VACCINE Aged Out No longer eligi ble based on patient's age to complete this topic HPV VACCINE Aged Out No longer eligi ble based on patient's age to complete this topic MENINGOCOCCAL (Group B) VACCINE Aged Out No longer eligible based on patient's age to complete this topic MENINGOCOCCAL VACCINE Aged Out No maribell jessica eligible based on patient's age to complete this topic Medical Devices Implanted Type Area Salt Grinder Device Identifier Shelf Expiration Date Model / Serial / Lot Kit Bngf 26mm 18mm Infs Lg Spne Rhbmp-2 Implanted:Qty: 1 on 02/19/2022 by Igor Yin MD at [facility] Spine Lumbar [employer] 06/24/2023 [id number] / / [id number] Screw Set Ti 4.75mm Spne Nonster Implanted:Qty: 6 on 02/19/2022 by Igor Yin MD at [facility] Lumbar [employer] Inc [id number] / / Hu Spnl 90mm 4.75mm Cd Hzn Solera Crv Implanted:Qty: 2 on 02/19/2022 by Igor Yin MD at [facility] Lumbar [employer] Inc [id number] / / Plate Spne 30-32mm Cd Hzn Solera X10 Implanted:Qty: 1 on 02/19/2022 by Igor Yin MD at [facility] Lumbar [employer] Inc [id number] / / Floseal Hemostatic Matrix 10ml Implanted:Qty: 1 on 02/19/2022 by Igor Yin MD at [facility] Lumbar [employer] 05/29/2023 [id number] / / [id number] Regan Bone Void 10cc 20cc Ca Slf Stimulan Implanted:Qty: 1 on 02/19/2022 by Igor Yin MD at [facility] Lumbar [employer] 04/23/2024 [id number] / / [id number] Graft Bone Infs Rhbmp-2 Bvn Clgn Lg 8ml Implanted:Qty: 1 on 02/19/2022 by Igor Yin MD at [facility] Lumbar [employer] 04/23/2023 [id number] / / [id number] Screw 4.75 Aiken Mas 5.5x55 Cc Implanted:Qty: 1 on 02/19/2022 by Igor Yin MD at [facility] Spine Lumbar [employer] 07/29/2026 [id number] / / [id number] Screw 4.75 Aiken Mas 5.5x55 Cc Implanted:Qty: 1 on 02/19/2022 by Igor Yin MD at [facility] Spine Lumbar [employer] 07/29/2026 [id number] / / [id number] Graft Bone Grftn Dbm Strp [id number] - [id number] Implanted:Qty: 1 on 02/19/2022 by Igor Yin MD at [facility] Spine Lumbar [employer] 01/20/2025 [id number] / [id number] / Graft Bone Canc 30ml Crsh Chp Frzn Implanted:Qty: 1 on 02/19/2022 by Igor Yin MD at [facility] Spine Lumbar [employer] 04/28/2025 [id number] / / Screw 4.5mm 45mm 2 Ld Thrd Frm Ma Clr Cd Implanted:Qty: 4 on 02/19/2022 by Igor Yin MD at [facility] Spine Lumbar [employer] [id number] / / Advance Directives * Full Code (Latest Code Status on File) Date Activated Date Inactivated Comments 02/19/2022 4:52 PM 02/20/2022 5:28 PM Care Teams Work Over Rig Operator Relationship Specialty Start Date End Date Marisa Boyce PA [address] [place] [address] PCP - General Physician Box Office Attendant 11/22/16 Igor Yin MD [address] [place] [id number] Surgeon Orthopedic Surgery 04/03/21
--- OUTSIDE RECORDS SUMMARY | 2024-12-07 10:57 | XMS_ITS | Clinical Summary ---
Author Organization [facility] Address [facility] [place] [address] Care Team Providers Care Supervisor Dry Cleaning Name Role Phone Ely Jenkins MD Primary Care Provider [phone] Delgado Lund MD Unavailable Medications famotidine (PEPCID) 20 MG tablet Take 1 tablet (20 mg total) by mouth 2 (two) times daily. 4 Active losartan-hydroC HLOROthiazide (HYZAAR) 50-12.5 MG tablet Take 1 tablet by mouth daily. 4 Active mometasone furoate (ELOCON) 0.1 % cream Apply to nose and surrounding area daily after radiation. 45 g 1 4 Active ondansetron (ZOFRAN) 4 MG tablet Take 1 tablet (4 mg total) by mouth every 8 (eight) hours as needed for Nausea. 30 tablet 2 4 Active Social History Tobacco Use Types Packs/Day Years Used Date Smoking Tobacco: Every Day Cigarettes 1 30.8 Started: 02/13/1994 Tobacco Cessation:Ready to Q uit: Not Asked; Counseling Given: Not Answered Comments Unknown Sex and Gender Information Value Date Recorded Sex Assigned at Not on file Legal Sex Female 8:07 PM CDT Gender Identity Not on file Sexual Orientation Not on file Last Filed Vital Signs Vital Sign Reading Time Taken Comments Blood Pressure 161/75 04/05/2024 1:17 PM CDT Pulse 100 04/05/2024 1:17 PM CDT Temperature - - Respiratory Rate - - Oxygen Saturation 96% 04/05/2024 1:17 PM CDT Inhaled Oxygen Concentration - - Weight 68.8 kg (151 lb 9.6 oz) 04/05/2024 1:17 P M CDT Height 162.6 cm (5' 4 ) 03/29/2024 1:15 PM CDT Body Mass Index 26.02 03/29/2024 1:15 PM CDT Plan of Treatment Health Maintenance Due Date Last Done Comments Cervical Cancer Screening Pa p Smear (Age 30 to 64) Every 3 Years 1961 Colorectal Cancer Screening Colonoscopy (10 Years) 1961 Annual Physical 1964 Pneumococcal Vaccine: Pediat rics (0 to 5 Years) and At-Risk Patients (6 to 64 Years) (1 of 2 - PCV) 01/01/1968 Hepatitis C 01/01/1980 DTaP, Tdap and Td Vaccines ( 1 - Tdap) 1980 Cervical Cancer Screening Pa p with HPV Testing (Age 30 to 64) Every 5 Years 01/01/1992 Cervical Cancer Screening with HPV 01/01/1992 Mammogram Screening 2001 Zoster Vaccines (1 of 2) 01/01/2012 COVID-19 Vaccine (2 - 2023-2 5 season) 2024 03/30/2021 Influenza Adult (#1) 2024 RSV Immunization or 60+ Years (1 - 1-dose 75+ series) 2036 Meningococcal B Vaccine Aged Out No l onger eligible based on patient's age to complete this topic Meningococcal Vaccine Aged Out No maribell jessica eligible based on patient's age to complete this topic RSV Immunizations Under 20 Months Aged Out No longer eligible based on patient's age to complete this topic Insurance [facility] C/O PROVIDER SERVICES [place] [id number] Care Teams Supervisor Dry Cleaning Relationship Specialty Start Date End Date Ely Jenkins MD [address] [place] [id number] PCP - General FAMILY PRACTICE 02/14/24 Delgado Lund MD [address] [place] [address] Consulting Physician RADIATION ONCOLOGY 02/14/24
--- OUTSIDE RECORDS SUMMARY | 2024-12-07 10:57 | XMS_ITS | Referral Summary ---
Author Organization [facility] [employer] Address [address] [place] [address] Care Team Providers Care Inorganic Chemist Name Role Phone Marisa Boyce Primary Care Pr ovider Igor Yin MD Unavailable [phone] Source Comments [facility],non-owned Affiliates and Associated Physician Practices is amultiple site organization consisting of ambulatory clinics and hospital sitesin [place], [place], [place] and [place]. This disclosure is being madepursuant to the Care Everywhere program and may not contain all information available regarding this patient. Last updated 18.[facility] [employer] Allergies Active Allergy Reactions Criticality Noted Date Comments Penicillins Rash Medium 11/22/2016 Medications * Be aware that medications may not be up to date on this document. Alwaysverify current medications with the patient. Medication Sig Dispensed Refills Start Date End Date Status POTASSIUM PO Take 1 tablet by mouth once daily Active VITAMIN D PO Take 1 tablet by mouth once daily Active ujimakc-ndmfktlvm-k inc 333-133-5 MG tablet Take 1 tablet [...] Next Due CATRACHITA FREDERICK PRIMARY 18+YR 03/30/2021 Social History Tobacco Use Types Packs/Day Years [...] Mass Index 27.81 02/19/2022 8:36 AM CDT Functional Status Functional Status Response Date of Assess ment Is person deaf or have serious hearing difficult y? No 02/19/2022 Is person blind or have serious difficulty seein g? No 02/19/2022 Does person have serious dif ficulty walking/climbing stairs? Yes 02/19/2022 Does person have difficulty dressing/bathing? No 02/19/2022 Does person have difficulty doing errands alone? No 02/19/2022 Cognitive Status Response Date of Assessm ent Does person have difficulty concentrating/remembering/making decisions? No 02/19/2022 Plan of Treatment Not on file Medical Devices Implanted Type Area Ledge Man Device Identifier Shelf Expiration Date Model / Serial / Lot Kit Bngf 26mm 18mm Infs Lg Spne Rhbmp-2 Implanted:Qty: 1 on 02/19/2022 by Igor Yin MD at [facility] Spine Lumbar [employer] 06/24/2023 [id number] / / [id number] Screw Set Ti 4.75mm Spne Nonster Implanted:Qty: 6 on 02/19/2022 by Igor Yin MD at [facility] Lumbar [employer] [id number] / / Hu Spnl 90mm 4.75mm Cd Hzn Solera Crv Implanted:Qty: 2 on 02/19/2022 by Igor Yin MD at [facility] Spine Lumbar [employer] [id number] / / Plate Spne 30-32mm Cd Hzn Solera X10 Implanted:Qty: 1 on 02/19/2022 by Igor Yin MD at [facility] Lumbar [employer] [id number] / / Floseal Hemostatic Matrix 10ml Implanted:Qty: 1 on 02/19/2022 by Igor Yin MD at [facility] Lumbar [employer] 05/29/2023 [id number] / / [id number] Regan Bone Void 10cc 20cc Ca Slf Stimulan Implanted:Qty: 1 on 02/19/2022 by Igor Yin MD at [facility] Lumbar [employer] 04/23/2024 [id number] / / [id number] Graft Bone Infs Rhbmp-2 Bvn Clgn Lg 8ml Implanted:Qty: 1 on 02/19/2022 by Igor Yin MD at [facility] Spine Lumbar [employer] 04/23/2023 [id number] / / [id number] Screw 4.75 Aiken Mas 5.5x55 Cc Implanted:Qty: 1 on 02/19/2022 by Igor Yin MD at [facility] Spine Lumbar [employer] 07/29/2026 [id number] / / [id number] Screw 4.75 Aiken Mas 5.5x55 Cc Implanted:Qty: 1 on 02/19/2022 by Igor Yin MD at [facility] Spine Lumbar [employer] 07/29/2026 [id number] / / [id number] Graft Bone Grftn Dbm Strp [id number] - [id number] Implanted:Qty: 1 on 02/19/2022 by Igor Yin MD at [facility] Spine Lumbar [employer] 01/20/2025 [id number] / [id number] / Graft Bone Canc 30ml Crsh Chp Frzn Implanted:Qty: 1 on 02/19/2022 by Igor Yin MD at [facility] Lumbar [employer] 04/28/2025 [id number] / / [id number] Screw 4.5mm 45mm 2 Ld Thrd Frm Ma Clr Cd Implanted:Qty: 4 on 02/19/2022 by Igor Yin MD at [facility] Lumbar [employer] [id number] / / Advance Directives * Full Code (Latest Code Status on File) Date Activated Date Inactivated Comments 02/19/2022 4:52 PM 02/20/2022 5:28 PM Care Teams Inorganic Chemist Relationship Specialty Start Date End Date Marisa Boyce PA [address] [place] [address] PCP - General Physician Palliative Care Specialist 11/22/16 Igor Yin MD [address] [place] [address] [address] [place] [address] Surgeon Orthopedic Surgery 04/03/21
[2024-12-07 11:21] LABS: Basophils Absolute Auto 0.1 K/mm3 (0.0-0.1); Basophils Percent Auto 0.6 % (0.2-1.2); Eosinophils Absolute Auto 0.2 K/mm3 (0-0.3); Hematocrit 38.7 % (37.0-47.0); Hemoglobin 13.3 g/dL (12.0-15.0); Immature Granulocyte Absolute 0.11 K/mm3 (0.00-0.031); Immature Granulocyte Percent A 0.6 % (0-0.5); Lymphocytes Absolute Auto 3.03 K/mm3 (0.9-3.2); Lymphocytes Percent Auto 16.7 % (18.3-44.2); Mean Corpuscular HGB Conc 34.4 g/dl (32-36); Mean Corpuscular Hemoglobin 33.1 pg (26-34); Mean Corpuscular Volume 96.3 fl (80-100); Mean Platelet Volume 8.9 fl (7.4-10.4); Monocytes Absolute Auto 1.4 K/mm3 (0.1-0.6); Monocytes Percent Auto 7.8 % (2.6-8.5); Neutrophils Absolute Auto 13.3 K/mm3 (1.3-6.7); Neutrophils Percent Auto 73.3 % (45.5-73.1); Platelet Count Result 222 k/mm3 (150-375); Red Blood Count 4.02 M/mm3 (4.2-5.4); Red Cell Distribution Width 12.4 % (11.5-14.5); White Blood Count 18.1 K/mm3 (4.5-10.0)
[2024-12-07 11:29] LABS: Anion Gap 10 mmol/L (4-12); Blood Urea Nitrogen 10 mg/dL (7-17); Calcium 8.5 mg/dL (8.4-10.2); Carbon Dioxide 24 mmol/L (22-30); Chloride 105 mmol/L (98-107); Estimated CRCL calculation 80 ml/min; Estimated Glomerular Filt Rate > 60; Glucose 161 mg/dL (65-110); Potassium 3.5 mmol/L (3.4-5.0); Sodium 139 mmol/L (137-145)
[2024-12-07] MEDS: HYDROcodone/acetaminophen (*CRX) 5-325 MG TABLET 1 TAB PO (13:50)
--- NOTE | 2024-12-07 14:07 | ED_ITS ---
HPI - Fall General Chief Complaint: Fall Stated Complaint: fall out of bed, back pain Time Seen by Provider: 12/07/24 10:17 History of Present Illness HPI Narrative: Patient with history of back problems and surgeries presents here after she fell out of her bed, landing on her back, denies any injury to her head her neck, she has pain to her lower back, no focal numbness or weakness to her legs but pain with trying to get up walk. Related Data Allergies Allergy/AdvReac Type Severity Reaction Status Date / Time Penicillins Allergy Severe rash Verified 12/07/24 10:02 Review of Systems 2 Review of Systems: All systems reviewed & are unremarkable except as noted in HPI and below Exam 2 Narrative: EXAMINATION OF ORGAN SYSTEMS/BODY AREAS: Constitutional: Vital signs per nursing GENERAL: Appears uncomfortable due to pain HEAD: Normal with no signs of head trauma. EYES: EOMI, conjunctiva normal ENT: Hearing grossly intact LUNGS: Nonlabored breathing. HEART: [Regular rate and rhythm] ABD: [Soft], [nontender to palpation] EXT: Midline tenderness to back SKIN: [No rashes or lesions.] NEURO: [Alert and oriented x 3. No gross focal sensory or strength deficits; able to move her legs without issue.] PSYCH: Normal affect Course Vital Signs Vital signs: Vital Signs Temperature 97.4 F L 12/07/24 09:52 Pulse Rate 99 12/07/24 09:52 Respiratory Rate 20 12/07/24 09:52 Blood Pressure 140/100 H 12/07/24 09:52 Pulse Oximetry 95 12/07/24 09:52 Oxygen Delivery Room Air 12/07/24 09:52 Temperature 97.4 F L 12/07/24 09:52 Pulse Rate 97 12/07/24 10:58 Respiratory Rate 18 12/07/24 10:58 Blood Pressure 145/58 H 12/07/24 10:58 Pulse Oximetry 94 12/07/24 10:58 Oxygen Delivery Room Air 12/07/24 09:52 MDM - Fall MDM Narrative Medical decision making narrative: Patient presenting here with midline back pain after falling out of bed, no head injury, she does have significant tenderness to her mid low back, CT unfortunately shows acute burst fracture Patient initially wanted to try to go home, she has a brace at home, however when she tried to get up and walk the pain was too intense, she would like to be admitted at this time, discussed with hospitalist will be admitted for PT/OT Lab Data 12/07/24 11:14 12/07/24 11:14 Labs: Lab Results 12/07/24 Range/Units 11:14 WBC 18.1 H (4.5-10.0) K/mm3 RBC 4.02 L (4.2-5.4) M/mm3 Hgb 13.3 (12.0-15.0) g/dL Hct 38.7 (37.0-47.0) % MCV 96.3 (80-100) fl MCH 33.1 (26-34) pg MCHC 34.4 (32-36) g/dl RDW 12.4 (11.5-14.5) % Plt Count 222 (150-375) k/mm3 MPV 8.9 (7.4-10.4) fl Immature Gran % (Auto) 0.6 H (0-0.5) % Neut % (Auto) 73.3 H (45.5-73.1) % Lymph % (Auto) 16.7 L (18.3-44.2) % Davie % (Auto) 7.8 (2.6-8.5) % Eos % (Auto) 1.0 (0-4.4) % Baso % (Auto) 0.6 (0.2-1.2) % Lymph # (Auto) 3.03 (0.9-3.2) K/mm3 Davie # (Auto) 1.4 H (0.1-0.6) K/mm3 Eos # (Auto) 0.2 (0-0.3) K/mm3 Baso # (Auto) 0.1 (0.0-0.1) K/mm3 Abs Immat Gran (auto) 0.11 H (0.00-0.031) K/mm3 Absolute Neuts (auto) 13.3 H (1.3-6.7) K/mm3 Absolute Nucleated RBC 0.000 (0.0-0.012) K/mm3 Nucleated RBC % 0.0 (0.0-0.2) % Sodium 139 (137-145) mmol/L Potassium 3.5 (3.4-5.0) mmol/L Chloride 105 (98-107) mmol/L Carbon Dioxide 24 (22-30) mmol/L Anion Gap 10 (4-12) mmol/L BUN 10 (7-17) mg/dL Creatinine 0.53 L (0.7-1.0) mg/dL Estim Creat Clear Calc 80 ml/min Estimated GFR > 60 (59 - ) Glucose 161 H (65-110) mg/dL Calcium 8.5 (8.4-10.2) mg/dL Discharge Plan Discharge Clinical Impression: Burst fracture of lumbar vertebra Patient Disposition: Still a Patient Condition: Serious
--- NOTE | 2024-12-07 16:40 | P.HP_ITS ---
H&P: HPI History of Present Illness Date/Time: 12/07/24 16:40 Chief Complaint: Acute pain after fall Narrative: 63-year-old female with chronic back pain who presents to the hospital after falling out of bed. Patient states that she is unable to walk due to acute back pain from a fall. Patient states that she woke up on the floor. She is seems that she to roll out of bed. She states that she has acute severe pain and called 911. She has chronic upper back pain and is on oral morphine at home. In the ED leukocytosis at 18.1, lumbar CT shows acute L2 burst fracture. Neurosurgery has been consulted pending recommendations. Review of Systems Review of Systems: 12 systems were reviewed and are negativ e except for as per HPI. [facility] Past Medical History Medical History (Updated 12/07/24 @ 23:57 by Daphnie Arnold APRN) Chronic pain Surgical History Surgical History (Updated 12/07/24 @ 23:58 by Daphnie Arnold APRN) Back pain with history of spinal surgery Family History Family History (Updated 12/07/24 @ 18:31 by Ya Couch RN) Sibling Brain cancer Lung cancer Sibling Diabetes mellitus Lung cancer Mother Diabetes mellitus Social History Social History Smoking packs per day: 1 Smoking cigarettes per day: 20.0 Years smoked: 40 Smoking pack-years: 40.00 Smoking status: Current every day smoker Tobacco type: cigarettes Alcohol intake: never Substance use: current Substance use type: marijuana Do You Feel Safe in your Home?: Yes Lack of Transportation: No Lack of Food: Never True Current Housing: I Have Housing Concerned About Future Housing: No Difficulty Paying Gas/Electric Bills: No Difficulty Paying for Meds: No Currently Unemployed: No Education: High School Diploma/GED Difficulty w/ Childcare or Family Care: No Spiritual care concerns: No Meds Home Medications and Allergies Home Medications ?Medication ?Instructions ?Recorded ?Confirmed ?Type cyclobenzaprine 10 mg tablet 10 mg PO PRN 12/07/24 12/07/24 History lidocaine 5 % topical patch 1 patch topical DAILY #15 ea 12/07/24 Rx losartan 50 mg-hydrochlorothiazide 1 tablet PO DAILY 12/07/24 12/07/24 History 12.5 mg tablet methocarbamol 750 mg tablet 750 mg PO TID PRN muscle spasm #30 12/07/24 Rx tabs morphine 10 mg capsule,extended 10 mg PO TID 12/07/24 12/07/24 History release pellets pantoprazole 40 mg tablet,delayed 40 mg PO DAILY 12/07/24 12/07/24 History release rosuvastatin 40 mg tablet 40 mg PO QHS 12/07/24 12/07/24 History Allergies Allergy/AdvReac Type Severity Reaction Status Date / Time Penicillins Allergy Severe rash Verified 12/07/24 18:35 Vital Signs Vital Signs - 24 hr 12/07/24 09:52 12/07/24 10:58 Temperature 97.4 F L Pulse Rate 99 97 Respiratory Rate 20 18 Blood Pressure 140/100 H 145/58 H Pulse Oximetry 95 94 Oxygen Delivery Room Air Exam Narrative: General: Appears to be uncomfortable HEENT: normocephalic, atraumatic. Mucous membranes moist. EOMI, PERRLA, bilateral sclera anicteric, no conjunctival injection. Neck supple without JVD, lymphadenopathy, or bruit. Respiratory: clear to ascultation bilaterally. No rales/rhonic/wheezes. Cardiovascular: Regular rate and rhythm, normal S1-S2 upon ascultation. No murmurs, rubs, or clicks. PMI is nondisplaced, capillary refill less than 3 second. Abdomen: Soft, round, no pulsatile masses, nondistended and nontender. No rebound, no guarding. No CVA tenderness, no hepatosplenomegaly. Bowel sounds present to all four quadrants. No high pitch or tinkling sounds, resonant to percussion. Extremities: No cyanosis, clubbing, or edema present. Pulses are palpable 2/2. Active ROM to all four extremities. Neuro: Alert and orientated x 4. PERRLA. Cranial nerves 2-12 intact without focal deficit. Skin: Warm, dry, and intact, without rash, erythema, or lesion. Psych: pleasant, cooperative, normal speech, normal affect, no hallucinations, no dysarthia H&P: Results Labs Labs: Short CBC 12/07/24 Range/Units 11:14 WBC 18.1 H (4.5-10.0) K/mm3 Hgb 13.3 (12.0-15.0) g/dL Hct 38.7 (37.0-47.0) % Plt Count 222 (150-375) k/mm3 [facility] 12/07/24 11:14 Sodium 139 Potassium 3.5 Chloride 105 Carbon Dioxide 24 BUN 10 Creatinine 0.53 L Glucose 161 H Calcium 8.5 Assessment and Plan Assessment and plan (1) Fall: Code(s): W19.XXXA - Unspecified fall, initial encounter Status: Acute Assessment and Plan: Will need PT OT after cleared by Neurosurgery (2) Burst fracture of lumbar vertebra: Code(s): S32.001A - Stable burst fracture of unspecified lumbar vertebra, initial encounter for closed fracture Status: Acute Assessment and Plan: Secondary to above Neurosurgery consulted pending recommendation Bed rest until seen by Neurosurgery Pain Management, Flexeril and gabapentin Bowel protocol (3) Leukocytosis: Code(s): D72.829 - Elevated white blood cell count, unspecified Status: Acute Assessment and Plan: UA pending (4) Chronic pain: Code(s): G89.29 - Other chronic pain Status: Acute Assessment and Plan: Acute and chronic pain Patient's home morphine dose is non formulary Pain management ordered Patient started on oral regimen which was not helping, IV morphine added not helping, IV Dilaudid added not helping Dilaudid MIXER OPERATOR RAW SALT ordered with capnography Quality VTE Prophylaxis VTE prophylaxis: mechanical ordered and pharmacologic ordered Hospitalist MIPS Advance Care Plan I have confirmed that the patient's Advanced Care Plan is present, code status is documented, or surrogate decision maker is listed in patient medical record.: Yes Medication Reconciliation I have utilized all available resources to obtain, update and review the patients current medications (includes all prescriptions, OTC, herbals, cannabis, and nutritional supplements).: Yes
[2024-12-07] MEDS: CYCLOBENZAPRINE HCL 10 MG TABLET PO (16:49)
--- NOTE | 2024-12-07 18:05 | ADMGEN ---
This patient, Gabriela Lr, was admitted to Medical Room 348-01. Patient/family oriented to hospital policies and general routines including ID bracelet, bed and alarms, visiting hours, pain management, procedures, bathroom and other care routines, personal items, smoking policy, room service/diet, and visiting hours. Information on how to activate the Rapid Response Team has been discussed. Patient/Family are encouraged to report perceived risks to care and to ask questions if they do not understand what they are told or what they should do.
[2024-12-07] MEDS: MORPHINE SULFATE (*CRX) 2 MG/ML INJ IV PUSH (18:21)
[2024-12-07] MEDS: HYDROmorphone HCL INJ (*CRX) 1 MG/ML SYR 0.5 MG IV PUSH ×2 (19:58→22:06)
[2024-12-07] MEDS: diazePAM INJ (*CRX) 10 MG/2 ML SYRINGE 5 MG IV PUSH (21:02)
[2024-12-07] MEDS: GABAPENTIN 300 MG CAPSULE PO (21:02)
[2024-12-07] MEDS: ROSUVASTATIN 20 MG TABLET 40 MG PO (21:02)
[2024-12-07] MEDS: LIDOCAINE 5% PATCH 1 PATCH TRANSDERM (21:08)
[2024-12-07] MEDS: SODIUM CHLORIDE 0.9% IV 1,000 ML 30 ML IV CONT (23:35)
[2024-12-07] MEDS: HYDROmorphon 0.2MG/ML PCA(*CRX 6 MG/30 ML PCA.VIAL IV CONT (23:53)
[2024-12-08] VITALS (16 sets, daily range): BP systolic 122–125; BP diastolic 51–73; PULSE 95–112; RESP 18–23; TEMP 36.4–36.6; O2SAT 93–96
[2024-12-08] MEDS: GABAPENTIN 300 MG CAPSULE PO ×3 (05:33→21:19)
[2024-12-08] MEDS: diazePAM INJ (*CRX) 10 MG/2 ML SYRINGE 5 MG IV PUSH ×3 (05:33→21:19)
[2024-12-08 05:53] LABS: Basophils Absolute Auto 0.1 K/mm3 (0.0-0.1); Basophils Percent Auto 0.6 % (0.2-1.2); Eosinophils Absolute Auto 0.1 K/mm3 (0-0.3); Eosinophils Percent Auto 0.5 % (0-4.4); Hematocrit 39.9 % (37.0-47.0); Hemoglobin 13.1 g/dL (12.0-15.0); Immature Granulocyte Absolute 0.11 K/mm3 (0.00-0.031); Immature Granulocyte Percent A 0.6 % (0-0.5); Lymphocytes Absolute Auto 5.05 K/mm3 (0.9-3.2); Lymphocytes Percent Auto 26.2 % (18.3-44.2); Mean Corpuscular HGB Conc 32.8 g/dl (32-36); Mean Corpuscular Hemoglobin 31.8 pg (26-34); Mean Corpuscular Volume 96.8 fl (80-100); Mean Platelet Volume 8.8 fl (7.4-10.4); Monocytes Absolute Auto 1.6 K/mm3 (0.1-0.6); Monocytes Percent Auto 8.5 % (2.6-8.5); Neutrophils Absolute Auto 12.3 K/mm3 (1.3-6.7); Neutrophils Percent Auto 63.6 % (45.5-73.1); Platelet Count Result 234 k/mm3 (150-375); Red Blood Count 4.12 M/mm3 (4.2-5.4); Red Cell Distribution Width 12.5 % (11.5-14.5); White Blood Count 19.3 K/mm3 (4.5-10.0)
[2024-12-08 06:02] LABS: Anion Gap 3 mmol/L (4-12); Blood Urea Nitrogen 9 mg/dL (7-17); Calcium 8.7 mg/dL (8.4-10.2); Carbon Dioxide 25 mmol/L (22-30); Chloride 105 mmol/L (98-107); Estimated CRCL calculation 77 ml/min; Estimated Glomerular Filt Rate > 60; Glucose 123 mg/dL (65-110); Potassium 3.4 mmol/L (3.4-5.0); Sodium 133 mmol/L (137-145)
--- NOTE | 2024-12-08 07:26 | WPDNEUROSGCN ---
Assessment and Plan Assessment and plan (1) Burst fracture of lumbar vertebra: Code(s): S32.001A - Stable burst fracture of unspecified lumbar vertebra, initial encounter for closed fracture Status: Acute Assessment and Plan: This is a 63-year-old female with a L2 compression fracture with anterior height loss of the vertebral body about 30% with slight retropulsion. Given that she does not have any weakness of her lower extremities do not think an MRI is necessary for further workup of this fracture. This is more in line with the compression fracture and should heal with time pain control bracing and physical therapy. I would recommend a TLSO brace to be worn when upright moving out of bed and working with physical therapy. She does not need to wear the brace when she is in bed or in a chair. She should maintain use of the springs generally for up to 3 months. She should follow up with our nurse practitioner in clinic 1 month with AP lateral lumbar spine x-rays in her brace in an upright fashion. She does not need any neurosurgical intervention at this time. She would benefit from physical therapy once her pain is under better control. She would benefit from a pain management evaluation for management of her pain. She would also benefit from a medical workup for osteoporosis and treatment and management of bone health. She may benefit from a nutrition consult to to maximize proper bone health. Consult date: 12/08/24 Reason for consult: Evaluation of compression fracture HPI: Gabriela Lr is a 63 year old female with a history of prior thoracic fusion for work comp been related injury who fell out of her bed and was found to have an L2 compression fracture with minimal retropulsion. She denies any weakness of her legs although she can not walk due to severe pain. And she has pain that originates in her back and goes all the way down her legs. Review of Systems Review of Systems: She denies any loss of bowel bladder function weakness of her legs or numbness in her groin. [facility] Past Medical History Medical History (Updated 12/07/24 @ 23:58 by Daphnie Arnold APRN) Chronic pain Surgical History Surgical History (Updated 12/07/24 @ 23:58 by Daphnie Arnold APRN) Back pain with history of spinal surgery Family History Family History (Updated 12/07/24 @ 18:31 by Ya Couch RN) Sibling Brain cancer Lung cancer Sibling Diabetes mellitus Lung cancer Mother Diabetes mellitus Social History Social History Smoking packs per day: 1 Smoking cigarettes per day: 20.0 Years smoked: 40 Smoking pack-years: 40.00 Smoking status: Current every day smoker Tobacco type: cigarettes Alcohol intake: never Substance use: current Substance use type: marijuana Do You Feel Safe in your Home?: Yes Lack of Transportation: No Lack of Food: Never True Current Housing: I Have Housing Concerned About Future Housing: No Difficulty Paying Gas/Electric Bills: No Difficulty Paying for Meds: No Currently Unemployed: No Education: High School Diploma/GED Difficulty w/ Childcare or Family Care: No Spiritual care concerns: No Meds Home Medications and Allergies Home Medications ?Medication ?Instructions ?Recorded ?Confirmed ?Type cyclobenzaprine 10 mg tablet 10 mg PO PRN 12/07/24 12/07/24 History lidocaine 5 % topical patch 1 patch topical DAILY #15 ea 12/07/24 Rx losartan 50 mg-hydrochlorothiazide 1 tablet PO DAILY 12/07/24 12/07/24 History 12.5 mg tablet methocarbamol 750 mg tablet 750 mg PO TID PRN muscle spasm #30 12/07/24 Rx tabs morphine 10 mg capsule,extended 10 mg PO TID 12/07/24 12/07/24 History release pellets pantoprazole 40 mg tablet,delayed 40 mg PO DAILY 12/07/24 12/07/24 History release rosuvastatin 40 mg tablet 40 mg PO QHS 12/07/24 12/07/24 History Allergies Allergy/AdvReac Type Severity Reaction Status Date / Time Penicillins Allergy Severe rash Verified 12/07/24 18:35 Vital Signs Vital Signs - 24 hr 12/07/24 09:52 12/07/24 10:58 12/07/24 16:50 Temperature 97.4 F L Pulse Rate 99 97 100 Respiratory Rate 20 18 16 Blood Pressure 140/100 H 145/58 H 125/53 L Pulse Oximetry 95 94 95 Oxygen Delivery Room Air Oxygen Flow Rate 12/07/24 18:25 12/07/24 19:30 12/07/24 20:00 Temperature 97.5 F L 99.0 F Pulse Rate 103 H 82 Respiratory Rate 18 20 Blood Pressure 116/45 L 124/60 Pulse Oximetry 94 96 Oxygen Delivery Room Air Oxygen Flow Rate 12/07/24 23:28 12/07/24 23:38 12/07/24 23:53 Temperature 99.0 F Pulse Rate 107 H Respiratory Rate 22 H 22 H Blood Pressure 131/78 Pulse Oximetry 93 91 93 Oxygen Delivery Room Air Oxygen Flow Rate 12/08/24 00:52 12/08/24 01:08 12/08/24 01:55 Temperature Pulse Rate Respiratory Rate 18 20 Blood Pressure Pulse Oximetry 93 94 93 Oxygen Delivery Nasal Cannula Oxygen Flow Rate 1 12/08/24 02:58 12/08/24 03:58 12/08/24 04:00 Temperature 97.8 F Pulse Rate 105 H Respiratory Rate 18 20 20 Blood Pressure 124/73 Pulse Oximetry 94 93 93 Oxygen Delivery Oxygen Flow Rate 12/08/24 05:56 Temperature Pulse Rate Respiratory Rate 20 Blood Pressure Pulse Oximetry 94 Oxygen Delivery Oxygen Flow Rate Exam Narrative: She is lying in bed on her side she is in severe pain 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 She moves her bilateral lower extremities 5/5 strength including iliopsoas, quadriceps, hamstrings, plantar flexors, dorsiflexors, EHL. She has no clonus. She is tender to palpation in her lower lumbar spine. I reviewed her CT scan which shows compression fracture of L2 just below her existing fusion. She has minimal retropulsion she has about 30% loss of height. It does not appear to affect all 3 spinal columns and it appears more of a compression fracture with slight retropulsion. Results Labs 12/08/24 05:39 12/08/24 05:39 Labs: Short CBC 12/07/24 12/08/24 Range/Units 11:14 05:39 WBC 18.1 H 19.3 H (4.5-10.0) K/mm3 Hgb 13.3 13.1 (12.0-15.0) g/dL Hct 38.7 39.9 (37.0-47.0) % Plt Count 222 234 (150-375) k/mm3 BMP 12/07/24 12/08/24 11:14 05:39 Sodium 139 133 L Potassium 3.5 3.4 Chloride 105 105 Carbon Dioxide 24 25 BUN 10 9 Creatinine 0.53 L 0.55 L Glucose 161 H 123 H Calcium 8.5 8.7
[2024-12-08] MEDS: DOCUSATE SODIUM 100 MG CAPSULE PO ×2 (08:49→17:21)
[2024-12-08] MEDS: LOSARTAN POTASSIUM 50 MG TABLET PO (08:49)
[2024-12-08] MEDS: hydroCHLOROthiazide 12.5 MG CAPSULE PO (08:49)
[2024-12-08] MEDS: ENOXAPARIN 40 MG/0.4 ML SYRINGE SUB-Q (08:49)
[2024-12-08] MEDS: LIDOCAINE 5% PATCH 1 PATCH TRANSDERM (08:50)
[2024-12-08] MEDS: PANTOPRAZOLE 40 MG TABLET PO (08:55)
[2024-12-08] MEDS: NICOTINE (*PBKC) 21 MG PATCH 1 PATCH TRANSDERM (08:56)
--- NOTE | 2024-12-08 09:44 | P.PNIM_ITS ---
Progress Note: A&P Assessment and Plan (1) Fall: Code(s): W19.XXXA - Unspecified fall, initial encounter Status: Acute Assessment and Plan: Will need PT OT after cleared by Neurosurgery (2) Burst fracture of lumbar vertebra: Code(s): S32.001A - Stable burst fracture of unspecified lumbar vertebra, initial encounter for closed fracture Status: Acute Assessment and Plan: Secondary to above Neurosurgery consulted pending recommendation Bed rest until seen by Neurosurgery Pain Management, Flexeril and gabapentin Bowel protocol (3) Leukocytosis: Code(s): D72.829 - Elevated white blood cell count, unspecified Status: Acute Assessment and Plan: Blood and urine culture. no obvious source of infection. Will start IV Levaquin and monitor CBC. (4) Chronic pain: Code(s): G89.29 - Other chronic pain Status: Acute Assessment and Plan: Acute and chronic pain Patient's home morphine dose is non formulary Pain management ordered Patient started on oral regimen which was not helping, IV morphine added not helping, IV Dilaudid added not helping Dilaudid WEB DESIGN SPECIALIST ordered with capnography Subjective Date/time seen: 12/08/24 09:44 Interval history: Patient was seen during the morning rounds. Patient was admitted for fracture of the vertebra. Patient pain is under control. Patient denies any shortness of breath or chest pain. No abdominal pain, nausea, no vomiting. Mood stable. Review of Systems Review of Systems: 12 systems were reviewed and are negativ e except for as per HPI. Exam Narrative: General: Appears to be uncomfortable HEENT: normocephalic, atraumatic. Mucous membranes moist. EOMI, PERRLA, bilateral sclera anicteric, no conjunctival injection. Neck supple without JVD, lymphadenopathy, or bruit. Respiratory: clear to ascultation bilaterally. No rales/rhonic/wheezes. Cardiovascular: Regular rate and rhythm, normal S1-S2 upon ascultation. No murmurs, rubs, or clicks. PMI is nondisplaced, capillary refill less than 3 second. Abdomen: Soft, round, no pulsatile masses, nondistended and nontender. No rebound, no guarding. No CVA tenderness, no hepatosplenomegaly. Bowel sounds present to all four quadrants. No high pitch or tinkling sounds, resonant to percussion. Extremities: No cyanosis, clubbing, or edema present. Pulses are palpable 2/2. Active ROM to all four extremities. Neuro: Alert and orientated x 4. PERRLA. Cranial nerves 2-12 intact without focal deficit. Skin: Warm, dry, and intact, without rash, erythema, or lesion. Psych: pleasant, cooperative, normal speech, normal affect, no hallucinations, no dysarthia Objective Data Vital Signs Vital Signs: Vital Signs - 24 hr 12/07/24 09:52 12/07/24 10:58 12/07/24 16:50 Temperature 36.3 C L Pulse Rate 99 97 100 Respiratory Rate 20 18 16 Blood Pressure 140/100 H 145/58 H 125/53 L Pulse Oximetry 95 94 95 Oxygen Delivery Room Air Oxygen Flow Rate Fraction of Inspired Oxygen 12/07/24 18:25 12/07/24 19:30 12/07/24 20:00 Temperature 36.4 C L 37.2 C Pulse Rate 103 H 82 Respiratory Rate 18 20 Blood Pressure 116/45 L 124/60 Pulse Oximetry 94 96 Oxygen Delivery Room Air Oxygen Flow Rate Fraction of Inspired Oxygen 12/07/24 23:28 12/07/24 23:38 12/07/24 23:53 Temperature 37.2 C Pulse Rate 107 H Respiratory Rate 22 H 22 H Blood Pressure 131/78 Pulse Oximetry 93 91 93 Oxygen Delivery Room Air Oxygen Flow Rate Fraction of Inspired Oxygen 12/08/24 00:52 12/08/24 01:08 12/08/24 01:55 Temperature Pulse Rate Respiratory Rate 18 20 Blood Pressure Pulse Oximetry 93 94 93 Oxygen Delivery Nasal Cannula Oxygen Flow Rate 1 Fraction of Inspired Oxygen 12/08/24 02:58 12/08/24 03:58 12/08/24 04:00 Temperature 36.6 C Pulse Rate 105 H Respiratory Rate 18 20 20 Blood Pressure 124/73 Pulse Oximetry 94 93 93 Oxygen Delivery Oxygen Flow Rate Fraction of Inspired Oxygen 12/08/24 05:56 12/08/24 08:58 12/08/24 09:10 Temperature 36.4 C Pulse Rate 95 105 H Respiratory Rate 20 18 23 H Blood Pressure 122/51 L Pulse Oximetry 94 95 93 Oxygen Delivery Nasal Cannula Oxygen Flow Rate 1 Fraction of Inspired Oxygen 24 Intake/Output Intake/Output: Intake & Output 12/05/24 12/06/24 12/07/24 12/08/24 23:59 23:59 23:59 23:59 Intake Total 416.5 Output Total 850 Balance -433.5 Meds/Results Medications: Active Medications Generic Name Dose Route Start Last Admin Trade Name Freq PRN Reason Stop Dose Admin Acetaminophen 650 mg 12/07/24 17:15 Acetaminophen 325 Mg Tablet PO Q4H PRN Mild Pain (1-3) or Fever Hydrocodone Bitart/Acetaminophen 1 tab 12/07/24 15:55 Hydrocodone/Acetaminophen (*Crx) 10-325 Mg Tablet PO Q4H PRN Pain Rated 4-6 Cyclobenzaprine HCl 10 mg 12/07/24 16:00 12/07/24 16:49 Cyclobenzaprine Hcl 10 Mg Tablet PO 10 mg Q8H LIBRA Administration Diazepam 5 mg 12/07/24 21:00 12/08/24 05:33 Diazepam Inj (*Crx) 10 Mg/2 Ml Syringe IV PUSH 5 mg Q8HR LIBRA Administration Docusate Sodium 100 mg 12/08/24 09:00 12/08/24 08:49 Docusate Sodium 100 Mg Capsule PO 100 mg BID LIBRA Administration Enoxaparin Sodium 40 mg 12/08/24 09:00 12/08/24 08:49 Enoxaparin 40 Mg/0.4 Ml Syringe SUB-Q 40 mg DAILY LIBRA Administration Gabapentin 300 mg 12/07/24 22:00 12/08/24 05:33 Gabapentin 300 Mg Capsule PO 300 mg Q8HR LIBRA Administration Hydrochlorothiazide 12.5 mg 12/08/24 09:00 12/08/24 08:49 Hydrochlorothiazide 12.5 Mg Capsule PO 12.5 mg QAM LIBRA Administration Hydromorphone HCl 0.5 mg 12/07/24 19:45 12/07/24 19:58 Hydromorphone Hcl Inj (*Crx) 1 Mg/Ml Syr IV PUSH 0.5 mg Q3H PRN Administration Pain Rated 7-10 Hydromorphone HCl 6 mg in 30 mls @ 0 mls/hr 12/07/24 21:56 12/08/24 05:58 Dilaudid 0.2 Mg/Ml Nuclear Reactor Engineer IV CONT 0 mg/hr PRN PRN 0 mls/hr WEB DESIGN SPECIALIST Management Titration Protocol 0 MG/HR Sodium Chloride 1,000 mls @ 30 mls/hr 12/07/24 23:20 12/07/24 23:35 Normal Saline Iv IV CONT 30 mls/hr .Q24H LIBRA Administration Levofloxacin/Dextrose 500 mg in 100 mls @ 100 mls/hr 12/08/24 09:45 Levaquin 500 Mg/D5w 100 Ml IVPB Q24H LIBRA Lidocaine 1 patch 12/07/24 20:05 12/08/24 08:50 Lidocaine 5% Patch TRANSDERM 1 patch DAILY LIBRA Administration Losartan Potassium 50 mg 12/08/24 09:00 12/08/24 08:49 Losartan Potassium 50 Mg Tablet PO 50 mg QAM LIBRA Administration Nicotine 1 patch 12/07/24 20:05 12/08/24 08:56 Nicotine (*Pbkc) 21 Mg Patch TRANSDERM 1 patch DAILY LIBRA Administration Pantoprazole Sodium 40 mg 12/08/24 09:00 12/08/24 08:55 Pantoprazole 40 Mg Tablet PO 40 mg DAILY LIBRA Administration Rosuvastatin Calcium 40 mg 12/07/24 21:00 12/07/24 21:02 Rosuvastatin 20 Mg Tablet PO 40 mg QHS LIBRA Administration Radiology Results: ITS Impressions Lumbar Spine CT 12/07/24 10:50 IMPRESSION: 1. Acute L2 burst fracture. 2. Mild lumbar spondylosis. 3. Posterior fusion procedure at T12-L1. 4. Thoracolumbar levoscoliosis. Labs Labs: Laboratory Results - last 24 hr 12/07/24 12/08/24 11:14 05:39 WBC 18.1 H 19.3 H RBC 4.02 L 4.12 L Hgb 13.3 13.1 Hct 38.7 39.9 MCV 96.3 96.8 MCH 33.1 31.8 MCHC 34.4 32.8 RDW 12.4 12.5 Plt Count 222 234 MPV 8.9 8.8 Immature Gran % (Auto) 0.6 H 0.6 H Neut % (Auto) 73.3 H 63.6 Lymph % (Auto) 16.7 L 26.2 Addison % (Auto) 7.8 8.5 Eos % (Auto) 1.0 0.5 Baso % (Auto) 0.6 0.6 Lymph # (Auto) 3.03 5.05 H Addison # (Auto) 1.4 H 1.6 H Eos # (Auto) 0.2 0.1 Baso # (Auto) 0.1 0.1 Abs Immat Gran (auto) 0.11 H 0.11 H Absolute Neuts (auto) 13.3 H 12.3 H Absolute Nucleated RBC 0.000 0.000 Nucleated RBC % 0.0 0.0 Sodium 139 133 L Potassium 3.5 3.4 Chloride 105 105 Carbon Dioxide 24 25 Anion Gap 10 3 L BUN 10 9 Creatinine 0.53 L 0.55 L Estim Creat Clear Calc 80 77 Estimated GFR > 60 > 60 Glucose 161 H 123 H Calcium 8.5 8.7 Quality VTE Prophylaxis VTE prophylaxis: mechanical ordered and pharmacologic ordered
[2024-12-08] MEDS: levoFLOXacin 500 MG/D5W 100 ML 500 MG/100 ML BAG 100 MG IVPB (10:34)
[2024-12-08] MEDS: HYDROmorphon 0.2MG/ML PCA(*CRX 6 MG/30 ML PCA.VIAL IV CONT ×2 (11:05→19:39)
--- NOTE | 2024-12-08 11:56 | PCOTNOTE ---
Pt on bedrest orders until TLSO here which pt is to wear OOB. Pt also currently in a lot of pain. RN just ordering brace 11:50 so likely will be seen tomorrow unless brace arrives quickly.
--- NOTE | 2024-12-08 11:59 | PCPTNOTE ---
unable to perform PT evaluation--1150; discussed pt with PEDRO Dyer, pt does not have TLSO brace yet, has not been ordered. Documented by neuro in progress note to be up with TLSO brace, but not ordered.
[2024-12-08] MEDS: HYDROcodone/acetaminophen (*CRX) 10-325 MG TABLET 1 TAB PO ×2 (15:00→23:04)
[2024-12-08] MEDS: ROSUVASTATIN 20 MG TABLET 40 MG PO (21:19)
[2024-12-09] VITALS (13 sets, daily range): BP systolic 98–123; BP diastolic 49–69; PULSE 87–116; RESP 18–32; TEMP 36.1–36.6; O2SAT 93–98
[2024-12-09] MEDS: MORPHINE SULFATE (*CRX) 15 MG TAB IR PO ×4 (02:56→22:04)
[2024-12-09] MEDS: diazePAM INJ (*CRX) 10 MG/2 ML SYRINGE 5 MG IV PUSH ×2 (05:08→22:06)
[2024-12-09] MEDS: GABAPENTIN 300 MG CAPSULE PO (05:09)
[2024-12-09 05:50] LABS: Hematocrit 38.3 % (37.0-47.0); Hemoglobin 12.8 g/dL (12.0-15.0); Mean Corpuscular HGB Conc 33.4 g/dl (32-36); Mean Corpuscular Hemoglobin 32.2 pg (26-34); Mean Corpuscular Volume 96.5 fl (80-100); Mean Platelet Volume 8.5 fl (7.4-10.4); Platelet Count Result 198 k/mm3 (150-375); Red Blood Count 3.97 M/mm3 (4.2-5.4); Red Cell Distribution Width 12.5 % (11.5-14.5); White Blood Count 15.3 K/mm3 (4.5-10.0)
[2024-12-09 06:09] LABS: Alanine Aminotransferase 23 U/L (6-35); Albumin Level 3.8 g/dL (3.5-5.1); Alkaline Phosphatase 96 U/L (38-126); Anion Gap 10 mmol/L (4-12); Aspartate Amino Transferase 32 U/L (14-36); Bilirubin,Total 0.7 mg/dL (0.2-1.3); Blood Urea Nitrogen 8 mg/dL (7-17); Calcium 8.6 mg/dL (8.4-10.2); Carbon Dioxide 27 mmol/L (22-30); Chloride 98 mmol/L (98-107); Estimated CRCL calculation 83 ml/min; Estimated Glomerular Filt Rate > 60; Glucose 117 mg/dL (65-110); Potassium 3.2 mmol/L (3.4-5.0); Sodium 135 mmol/L (137-145)
[2024-12-09] MEDS: HYDROmorphon 0.2MG/ML PCA(*CRX 6 MG/30 ML PCA.VIAL IV CONT ×2 (06:30→17:02)
[2024-12-09] MEDS: PANTOPRAZOLE 40 MG TABLET PO (08:16)
[2024-12-09] MEDS: DOCUSATE SODIUM 100 MG CAPSULE PO ×2 (08:16→15:56)
[2024-12-09] MEDS: LOSARTAN POTASSIUM 50 MG TABLET PO (08:16)
[2024-12-09] MEDS: hydroCHLOROthiazide 12.5 MG CAPSULE PO (08:16)
[2024-12-09] MEDS: HYDROcodone/acetaminophen (*CRX) 10-325 MG TABLET 1 TAB PO ×2 (08:16→18:10)
[2024-12-09] MEDS: LIDOCAINE 5% PATCH 1 PATCH TRANSDERM (08:17)
[2024-12-09] MEDS: ENOXAPARIN 40 MG/0.4 ML SYRINGE SUB-Q (08:18)
[2024-12-09] MEDS: levoFLOXacin 500 MG/D5W 100 ML 500 MG/100 ML BAG 100 MG IVPB (08:46)
[2024-12-09] MEDS: SODIUM CHLORIDE 0.9% IV 1,000 ML 30 ML IV CONT (08:46)
--- NOTE | 2024-12-09 09:51 | PCPTNOTE ---
attempted PT eval, pt reports she is in too much pain to participate at this time, TLSO is in room, will follow
--- NOTE | 2024-12-09 11:31 | P.PNIM_ITS ---
Progress Note: A&P Assessment and Plan (1) Fall: Code(s): W19.XXXA - Unspecified fall, initial encounter Status: Acute Assessment and Plan: Will need PT OT after cleared by Neurosurgery (2) Burst fracture of lumbar vertebra: Code(s): S32.001A - Stable burst fracture of unspecified lumbar vertebra, initial encounter for closed fracture Status: Acute Assessment and Plan: Secondary to above Neurosurgery consulted pending recommendation Bed rest until seen by Neurosurgery Pain Management, Flexeril and gabapentin Bowel protocol (3) Leukocytosis: Code(s): D72.829 - Elevated white blood cell count, unspecified Status: Acute Assessment and Plan: Blood and urine culture. no obvious source of infection. Will start IV Levaquin and monitor CBC. 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 Patient was admitted for fracture of the vertebra. No new overnight complaints. Patient pain is under control. Patient denies any shortness of breath or chest pain. No abdominal pain, nausea, no vomiting. Mood stable. Review of Systems Review of Systems: 12 systems were reviewed and are negativ e except for as per HPI. Exam Narrative: General: Appears to be uncomfortable HEENT: normocephalic, atraumatic. Mucous membranes moist. EOMI, PERRLA, bilateral sclera anicteric, no conjunctival injection. Neck supple without JVD, lymphadenopathy, or bruit. Respiratory: clear to ascultation bilaterally. No rales/rhonic/wheezes. Cardiovascular: Regular rate and rhythm, normal S1-S2 upon ascultation. No murmurs, rubs, or clicks. PMI is nondisplaced, capillary refill less than 3 second. Abdomen: Soft, round, no pulsatile masses, nondistended and nontender. No rebound, no guarding. No CVA tenderness, no hepatosplenomegaly. Bowel sounds present to all four quadrants. No high pitch or tinkling sounds, resonant to percussion. Extremities: No cyanosis, clubbing, or edema present. Pulses are palpable 2/2. Active ROM to all four extremities. Neuro: Alert and orientated x 4. PERRLA. Cranial nerves 2-12 intact without focal deficit. Skin: Warm, dry, and intact, without rash, erythema, or lesion. Psych: pleasant, cooperative, normal speech, normal affect, no hallucinations, no dysarthia Objective Data Vital Signs Vital Signs: Vital Signs - 24 hr 12/08/24 14:16 12/08/24 15:19 12/08/24 19:39 Temperature 36.4 C Pulse Rate 105 H 105 H Respiratory Rate 18 Blood Pressure 125/65 Pulse Oximetry 94 96 96 Oxygen Delivery Nasal Cannula Oxygen Flow Rate 2 Fraction of Inspired Oxygen 12/08/24 20:00 12/08/24 20:00 12/08/24 20:11 Temperature 36.6 C Pulse Rate 105 H 112 H 110 H Respiratory Rate 18 21 H Blood Pressure 122/51 L Pulse Oximetry 96 96 95 Oxygen Delivery Nasal Cannula Nasal Cannula Oxygen Flow Rate 3 3 Fraction of Inspired Oxygen 24 12/09/24 00:00 12/09/24 04:00 12/09/24 06:30 Temperature 36.3 C L 36.6 C Pulse Rate 110 H 113 H Respiratory Rate 22 H 28 H 22 H Blood Pressure 112/61 109/62 Pulse Oximetry 94 95 96 Oxygen Delivery Oxygen Flow Rate Fraction of Inspired Oxygen 12/09/24 08:16 12/09/24 09:42 12/09/24 10:19 Temperature 36.1 C L Pulse Rate 116 H 114 H Respiratory Rate 18 Blood Pressure 114/49 L Pulse Oximetry 94 96 94 Oxygen Delivery Nasal Cannula Nasal Cannula Oxygen Flow Rate 3 3 Fraction of Inspired Oxygen 32 Intake/Output Intake/Output: Intake & Output 12/06/24 12/07/24 12/08/24 12/09/24 23:59 23:59 23:59 23:59 Intake Total 1400.0 1475.5 Output Total 1500 575 Balance -100.0 900.5 Meds/Results Medications: Active Medications Generic Name Dose Route Start Last Admin Trade Name Freq PRN Reason Stop Dose Admin Acetaminophen 650 mg 12/07/24 17:15 Acetaminophen 325 Mg Tablet PO Q4H PRN Mild Pain (1-3) or Fever Hydrocodone Bitart/Acetaminophen 2 tab 12/09/24 09:00 Hydrocodone/Acetaminophen (*Crx) 10-325 Mg Tablet PO Q6H PRN Pain Rated 7-10 Cyclobenzaprine HCl 10 mg 12/07/24 16:00 12/07/24 16:49 Cyclobenzaprine Hcl 10 Mg Tablet PO 10 mg Q8H LIBRA Administration Diazepam 5 mg 12/07/24 21:00 12/09/24 05:08 Diazepam Inj (*Crx) 10 Mg/2 Ml Syringe IV PUSH 5 mg Q8HR LIBRA Administration Docusate Sodium 100 mg 12/08/24 09:00 12/09/24 08:16 Docusate Sodium 100 Mg Capsule PO 100 mg BID LIBRA Administration Enoxaparin Sodium 40 mg 12/08/24 09:00 12/09/24 08:18 Enoxaparin 40 Mg/0.4 Ml Syringe SUB-Q 40 mg DAILY LIRBA Administration Gabapentin 300 mg 12/07/24 22:00 12/09/24 05:09 Gabapentin 300 Mg Capsule PO 300 mg Q8HR LIBRA Administration Hydrochlorothiazide 12.5 mg 12/08/24 09:00 12/09/24 08:16 Hydrochlorothiazide 12.5 Mg Capsule PO 12.5 mg QAM LIBRA Administration Hydromorphone HCl 0.5 mg 12/07/24 19:45 12/07/24 19:58 Hydromorphone Hcl Inj (*Crx) 1 Mg/Ml Syr IV PUSH 0.5 mg Q3H PRN Administration Pain Rated 7-10 Hydromorphone HCl 6 mg in 30 mls @ 0 mls/hr 12/07/24 21:56 12/09/24 06:30 Dilaudid 0.2 Mg/Ml Divorce Mediator IV CONT 0 mg/hr PRN PRN 0 mls/hr N[employer] TRUCK DRIVER Management Administration Protocol 0 MG/HR Sodium Chloride 1,000 mls @ 30 mls/hr 12/07/24 23:20 12/09/24 08:46 Normal Saline Iv IV CONT 30 mls/hr .Q24H LIBRA Administration Levofloxacin/Dextrose 500 mg in 100 mls @ 100 mls/hr 12/08/24 09:45 12/09/24 08:46 Levaquin 500 Mg/D5w 100 Ml IVPB 100 mls/hr QAM LIBRA Administration Lidocaine 1 patch 12/07/24 20:05 12/09/24 08:17 Lidocaine 5% Patch TRANSDERM 1 patch DAILY LIBRA Administration Losartan Potassium 50 mg 12/08/24 09:00 12/09/24 08:16 Losartan Potassium 50 Mg Tablet PO 50 mg QAM LIBRA Administration Morphine Sulfate 15 mg 12/09/24 03:00 12/09/24 08:16 Morphine Sulfate (*Crx) 15 Mg Tab Ir PO 15 mg Q6H LIBRA Administration Nicotine 1 patch 12/07/24 20:05 12/09/24 08:42 Nicotine (*Pbkc) 21 Mg Patch TRANSDERM Not Given DAILY LIBRA Pantoprazole Sodium 40 mg 12/08/24 09:00 12/09/24 08:16 Pantoprazole 40 Mg Tablet PO 40 mg DAILY LIBRA Administration Rosuvastatin Calcium 40 mg 12/07/24 21:00 12/08/24 21:19 Rosuvastatin 20 Mg Tablet PO 40 mg QHS LIBRA Administration Radiology Results: ITS Impressions Lumbar Spine CT 12/07/24 10:50 IMPRESSION: 1. Acute L2 burst fracture. 2. Mild lumbar spondylosis. 3. Posterior fusion procedure at T12-L1. 4. Thoracolumbar levoscoliosis. Labs Labs: Laboratory Results - last 24 hr 12/09/24 05:45 WBC 15.3 H RBC 3.97 L Hgb 12.8 Hct 38.3 MCV 96.5 MCH 32.2 MCHC 33.4 RDW 12.5 Plt Count 198 MPV 8.5 Sodium 135 L Potassium 3.2 L Chloride 98 Carbon Dioxide 27 Anion Gap 10 BUN 8 Creatinine 0.51 L Estim Creat Clear Calc 83 Estimated GFR > 60 Glucose 117 H Calcium 8.6 Total Bilirubin 0.7 AST 32 ALT 23 Alkaline Phosphatase 96 Total Protein 7.0 Albumin 3.8 Quality VTE Prophylaxis VTE prophylaxis: mechanical ordered and pharmacologic ordered
[2024-12-09] MEDS: HYDROcodone/acetaminophen (*CRX) 10-325 MG TABLET 2 TAB PO (13:14)
[2024-12-09] MEDS: POTASSIUM CHLORIDE 20 MEQ ER TABLET 40 MEQ PO (13:15)
[2024-12-09] MEDS: GABAPENTIN 300 MG CAPSULE 600 MG PO (15:56)
[2024-12-09] MEDS: ROSUVASTATIN 20 MG TABLET 40 MG PO (22:03)
[2024-12-10] VITALS (8 sets, daily range): BP systolic 96–131; BP diastolic 46–69; PULSE 58–121; RESP 17–28; TEMP 36.1–37.2; O2SAT 92–100
[2024-12-10] MEDS: HYDROcodone/acetaminophen (*CRX) 10-325 MG TABLET 1 TAB PO (00:22)
[2024-12-10] MEDS: MORPHINE SULFATE (*CRX) 15 MG TAB IR PO ×4 (03:02→21:06)
[2024-12-10 06:00] LABS: Hematocrit 38.1 % (37.0-47.0); Hemoglobin 12.3 g/dL (12.0-15.0); Mean Corpuscular HGB Conc 32.3 g/dl (32-36); Mean Corpuscular Hemoglobin 31.5 pg (26-34); Mean Corpuscular Volume 97.4 fl (80-100); Mean Platelet Volume 8.8 fl (7.4-10.4); Platelet Count Result 225 k/mm3 (150-375); Red Blood Count 3.91 M/mm3 (4.2-5.4); Red Cell Distribution Width 12.5 % (11.5-14.5); White Blood Count 14.3 K/mm3 (4.5-10.0)
[2024-12-10 06:19] LABS: Alanine Aminotransferase 23 U/L (6-35); Albumin Level 3.8 g/dL (3.5-5.1); Alkaline Phosphatase 130 U/L (38-126); Anion Gap 11 mmol/L (4-12); Aspartate Amino Transferase 33 U/L (14-36); Bilirubin,Total 0.7 mg/dL (0.2-1.3); Blood Urea Nitrogen 7 mg/dL (7-17); Calcium 8.8 mg/dL (8.4-10.2); Carbon Dioxide 29 mmol/L (22-30); Chloride 95 mmol/L (98-107); Estimated CRCL calculation 70 ml/min; Estimated Glomerular Filt Rate > 60; Glucose 107 mg/dL (65-110); Potassium 3.2 mmol/L (3.4-5.0); Sodium 135 mmol/L (137-145)
[2024-12-10] MEDS: diazePAM INJ (*CRX) 10 MG/2 ML SYRINGE 5 MG IV PUSH ×3 (06:29→21:07)
[2024-12-10] MEDS: SODIUM CHLORIDE 0.9% IV 500 ML 999 ML IV CONT (08:18)
[2024-12-10 09:04] LABS: Glucose Point of Care 120 mg/dl (65-105)
--- NOTE | 2024-12-10 09:11 | P.PNIM_ITS ---
Progress Note: A&P Assessment and Plan (1) Fall: Code(s): W19.XXXA - Unspecified fall, initial encounter Status: Acute Assessment and Plan: Will need PT OT after cleared by Neurosurgery (2) Burst fracture of lumbar vertebra: Code(s): S32.001A - Stable burst fracture of unspecified lumbar vertebra, initial encounter for closed fracture Status: Acute Assessment and Plan: Secondary to above Neurosurgery consulted pending recommendation Bed rest until seen by Neurosurgery Pain Management, Flexeril and gabapentin Bowel protocol Patient will get DEXA scan for osteoporosis an outpatient. (3) Leukocytosis: Code(s): D72.829 - Elevated white blood cell count, unspecified Status: Acute Assessment and Plan: Blood and urine culture. no obvious source of infection. Will continue with IV Levaquin and monitor CBC. (4) Chronic pain: Code(s): G89.29 - Other chronic pain Status: Acute Assessment and Plan: Acute and chronic pain Patient's home morphine dose is non formulary Pain management ordered Patient started on oral regimen which was not helping. 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 Subjective Date/time seen: 12/10/24 09:11 Interval history: Patient was seen during the morning rounds. Patient was admitted for fracture of the vertebra. Patient is gradually getting better. Started physical therapy yesterday. Patient pain is under control. Patient denies any shortness of breath or chest pain. No abdominal pain, nausea, no vomiting. Mood stable. Review of Systems Review of Systems: 12 systems were reviewed and are negativ e except for as per HPI. Exam Narrative: General: Appears to be uncomfortable HEENT: normocephalic, atraumatic. Mucous membranes moist. EOMI, PERRLA, bilateral sclera anicteric, no conjunctival injection. Neck supple without JVD, lymphadenopathy, or bruit. Respiratory: clear to ascultation bilaterally. No rales/rhonic/wheezes. Cardiovascular: Regular rate and rhythm, normal S1-S2 upon ascultation. No murmurs, rubs, or clicks. PMI is nondisplaced, capillary refill less than 3 second. Abdomen: Soft, round, no pulsatile masses, nondistended and nontender. No rebound, no guarding. No CVA tenderness, no hepatosplenomegaly. Bowel sounds present to all four quadrants. No high pitch or tinkling sounds, resonant to percussion. Extremities: No cyanosis, clubbing, or edema present. Pulses are palpable 2/2. Active ROM to all four extremities. Neuro: Alert and orientated x 4. PERRLA. Cranial nerves 2-12 intact without focal deficit. Skin: Warm, dry, and intact, without rash, erythema, or lesion. Psych: pleasant, cooperative, normal speech, normal affect, no hallucinations, no dysarthia Objective Data Vital Signs Vital Signs: Vital Signs - 24 hr 12/09/24 09:42 12/09/24 10:19 12/09/24 11:11 Temperature 36.1 C L Pulse Rate 116 H 114 H Respiratory Rate 18 Blood Pressure 114/49 L Pulse Oximetry 96 94 Oxygen Delivery Nasal Cannula Nasal Cannula Oxygen Flow Rate 3 3 Fraction of Inspired Oxygen 32 12/09/24 13:12 12/09/24 13:47 12/09/24 14:41 Temperature 36.3 C L Pulse Rate 106 H Respiratory Rate 18 Blood Pressure 118/58 L 98/50 L Pulse Oximetry 97 Oxygen Delivery Oxygen Flow Rate Fraction of Inspired Oxygen 12/09/24 16:23 12/09/24 17:02 12/09/24 20:00 Temperature 36.1 C L 36.6 C Pulse Rate 87 109 H Respiratory Rate 18 32 H 18 Blood Pressure 108/60 123/69 Pulse Oximetry 98 95 97 Oxygen Delivery Oxygen Flow Rate Fraction of Inspired Oxygen 12/09/24 20:34 12/10/24 05:00 12/10/24 08:00 Temperature 37.2 C 36.6 C Pulse Rate 116 H 65 Respiratory Rate 18 19 Blood Pressure 96/69 L 131/46 L Pulse Oximetry 93 96 98 Oxygen Delivery Nasal Cannula Oxygen Flow Rate 2 Fraction of Inspired Oxygen 12/10/24 08:08 Temperature Pulse Rate 121 H Respiratory Rate Blood Pressure Pulse Oximetry 94 Oxygen Delivery Nasal Cannula Oxygen Flow Rate 3 Fraction of Inspired Oxygen 32 Intake/Output Intake/Output: Intake & Output 12/07/24 12/08/24 12/09/24 12/10/24 23:59 23:59 23:59 23:59 Intake Total 1400.0 2285.5 Output Total 1500 1675 1100 Balance -100.0 610.5 -1100 Meds/Results Medications: Active Medications Generic Name Dose Route Start Last Admin Trade Name Freq PRN Reason Stop Dose Admin Acetaminophen 650 mg 12/07/24 17:15 Acetaminophen 325 Mg Tablet PO Q4H PRN Mild Pain (1-3) or Fever Hydrocodone Bitart/Acetaminophen 1 tab 12/09/24 14:50 12/10/24 00:22 Hydrocodone/Acetaminophen (*Crx) 10-325 Mg Tablet PO 1 tab Q4H PRN Administration Pain Rated 7-10 Cyclobenzaprine HCl 10 mg 12/07/24 16:00 12/07/24 16:49 Cyclobenzaprine Hcl 10 Mg Tablet PO 10 mg Q8H LIBRA Administration Diazepam 5 mg 12/07/24 21:00 12/10/24 06:29 Diazepam Inj (*Crx) 10 Mg/2 Ml Syringe IV PUSH 5 mg Q8HR LIBRA Administration Docusate Sodium 100 mg 12/08/24 09:00 12/09/24 15:56 Docusate Sodium 100 Mg Capsule PO 100 mg BID LIBRA Administration Enoxaparin Sodium 40 mg 12/08/24 09:00 12/09/24 08:18 Enoxaparin 40 Mg/0.4 Ml Syringe SUB-Q 40 mg DAILY LIBRA Administration Gabapentin 600 mg 12/09/24 17:00 12/09/24 15:56 Gabapentin 300 Mg Capsule PO 600 mg BID LIBRA Administration Hydrochlorothiazide 12.5 mg 12/08/24 09:00 12/09/24 08:16 Hydrochlorothiazide 12.5 Mg Capsule PO 12.5 mg QAM LIBRA Administration Hydromorphone HCl 0.5 mg 12/07/24 19:45 12/07/24 19:58 Hydromorphone Hcl Inj (*Crx) 1 Mg/Ml Syr IV PUSH 0.5 mg Q3H PRN Administration Pain Rated 7-10 Hydromorphone HCl 6 mg in 30 mls @ 0 mls/hr 12/07/24 21:56 12/09/24 17:02 Dilaudid 0.2 Mg/Ml Mechanical Unit Repairer IV CONT 0 mg/hr PRN PRN 0 mls/hr MANGLE ROLL OPERATOR Management Administration Protocol 0 MG/HR Sodium Chloride 1,000 mls @ 30 mls/hr 12/07/24 23:20 12/09/24 08:46 Normal Saline Iv IV CONT 30 mls/hr .Q24H LIBRA Administration Levofloxacin/Dextrose 500 mg in 100 mls @ 100 mls/hr 12/08/24 09:45 12/09/24 09:46 Levaquin 500 Mg/D5w 100 Ml IVPB Infused QAM LIBRA Infusion Lidocaine 1 patch 12/07/24 20:05 12/09/24 08:17 Lidocaine 5% Patch TRANSDERM 1 patch DAILY LIBRA Administration Losartan Potassium 50 mg 12/08/24 09:00 12/09/24 08:16 Losartan Potassium 50 Mg Tablet PO 50 mg QAM LIBRA Administration Morphine Sulfate 15 mg 12/09/24 03:00 12/10/24 03:02 Morphine Sulfate (*Crx) 15 Mg Tab Ir PO 15 mg Q6H LIBRA Administration Naloxone HCl 0.1 mg 12/09/24 14:47 Naloxone Hcl 0.4 Mg/Ml Vial IV PUSH Q5MIN PRN Sedation Nicotine 1 patch 12/07/24 20:05 12/09/24 08:42 Nicotine (*Pbkc) 21 Mg Patch TRANSDERM Not Given DAILY LIBRA Pantoprazole Sodium 40 mg 12/08/24 09:00 12/09/24 08:16 Pantoprazole 40 Mg Tablet PO 40 mg DAILY LIBRA Administration Rosuvastatin Calcium 40 mg 12/07/24 21:00 12/09/24 22:03 Rosuvastatin 20 Mg Tablet PO 40 mg QHS LIBRA Administration Radiology Results: ITS Impressions Lumbar Spine CT 12/07/24 10:50 IMPRESSION: 1. Acute L2 burst fracture. 2. Mild lumbar spondylosis. 3. Posterior fusion procedure at T12-L1. 4. Thoracolumbar levoscoliosis. Labs Labs: Laboratory Results - last 24 hr 12/10/24 12/10/24 05:51 09:01 WBC 14.3 H RBC 3.91 L Hgb 12.3 Hct 38.1 MCV 97.4 MCH 31.5 MCHC 32.3 RDW 12.5 Plt Count 225 MPV 8.8 Sodium 135 L Potassium 3.2 L Chloride 95 L Carbon Dioxide 29 Anion Gap 11 BUN 7 Creatinine 0.61 L Estim Creat Clear Calc 70 Estimated GFR > 60 Glucose 107 POC Capillary Glucose 120 H Calcium 8.8 Total Bilirubin 0.7 AST 33 ALT 23 Alkaline Phosphatase 130 H Total Protein 8.0 Albumin 3.8 Quality VTE Prophylaxis VTE prophylaxis: mechanical ordered and pharmacologic ordered
[2024-12-10] MEDS: hydroCHLOROthiazide 12.5 MG CAPSULE PO (09:20)
[2024-12-10] MEDS: PANTOPRAZOLE 40 MG TABLET PO (09:20)
[2024-12-10] MEDS: DOCUSATE SODIUM 100 MG CAPSULE PO ×2 (09:20→16:16)
[2024-12-10] MEDS: ENOXAPARIN 40 MG/0.4 ML SYRINGE SUB-Q (09:20)
[2024-12-10] MEDS: LIDOCAINE 5% PATCH 1 PATCH TRANSDERM (09:21)
[2024-12-10] MEDS: GABAPENTIN 300 MG CAPSULE 600 MG PO ×2 (09:21→16:15)
[2024-12-10] MEDS: LOSARTAN POTASSIUM 50 MG TABLET PO (09:21)
[2024-12-10] MEDS: HYDROcodone/acetaminophen (*CRX) 10-325 MG TABLET 2 TAB PO (09:26)
[2024-12-10] MEDS: POTASSIUM CHLORIDE 20 MEQ ER TABLET 40 MEQ PO (09:29)
[2024-12-10 12:21] LABS: Glucose Point of Care 133 mg/dl (65-105)
[2024-12-10] MEDS: HYDROmorphon 0.2MG/ML PCA(*CRX 6 MG/30 ML PCA.VIAL IV CONT (12:25)
[2024-12-10] MEDS: levoFLOXacin 500 MG/D5W 100 ML 500 MG/100 ML BAG 100 MG IVPB (12:50)
[2024-12-10] MEDS: ROSUVASTATIN 20 MG TABLET 40 MG PO (21:06)
[2024-12-10] MEDS: SALINE LOCK FLUSH 10 ML IV PUSH (21:10)
[2024-12-11] VITALS (9 sets, daily range): BP systolic 109–120; BP diastolic 43–87; PULSE 95–113; RESP 16–24; TEMP 36.1–36.7; O2SAT 93–99
[2024-12-11] MEDS: HYDROcodone/acetaminophen (*CRX) 10-325 MG TABLET 1 TAB PO (01:24)
[2024-12-11] MEDS: SODIUM CHLORIDE 0.9% IV 1,000 ML 30 ML IV CONT (01:24)
[2024-12-11] MEDS: MORPHINE SULFATE (*CRX) 15 MG TAB IR PO ×3 (03:00→18:54)
[2024-12-11] MEDS: diazePAM INJ (*CRX) 10 MG/2 ML SYRINGE 5 MG IV PUSH (05:27)
[2024-12-11] MEDS: SALINE LOCK FLUSH 10 ML IV PUSH ×3 (05:28→20:29)
[2024-12-11 05:35] LABS: Hematocrit 32.9 % (37.0-47.0); Hemoglobin 11.2 g/dL (12.0-15.0); Mean Corpuscular Hemoglobin 32.6 pg (26-34); Mean Corpuscular Volume 95.6 fl (80-100); Mean Platelet Volume 8.8 fl (7.4-10.4); Platelet Count Result 202 k/mm3 (150-375); Red Blood Count 3.44 M/mm3 (4.2-5.4); Red Cell Distribution Width 12.3 % (11.5-14.5); White Blood Count 9.1 K/mm3 (4.5-10.0)
[2024-12-11 05:45] LABS: Alanine Aminotransferase 24 U/L (6-35); Albumin Level 3.4 g/dL (3.5-5.1); Alkaline Phosphatase 152 U/L (38-126); Anion Gap 7 mmol/L (4-12); Aspartate Amino Transferase 40 U/L (14-36); Bilirubin,Total 0.7 mg/dL (0.2-1.3); Blood Urea Nitrogen 7 mg/dL (7-17); Calcium 8.7 mg/dL (8.4-10.2); Carbon Dioxide 30 mmol/L (22-30); Chloride 98 mmol/L (98-107); Estimated CRCL calculation 70 ml/min; Estimated Glomerular Filt Rate > 60; Glucose 106 mg/dL (65-110); Potassium 3.5 mmol/L (3.4-5.0); Sodium 135 mmol/L (137-145)
[2024-12-11] MEDS: PANTOPRAZOLE 40 MG TABLET PO (08:26)
[2024-12-11] MEDS: DOCUSATE SODIUM 100 MG CAPSULE PO ×2 (08:26→17:01)
[2024-12-11] MEDS: hydroCHLOROthiazide 12.5 MG CAPSULE PO (08:26)
[2024-12-11] MEDS: GABAPENTIN 300 MG CAPSULE 600 MG PO ×2 (08:26→17:01)
[2024-12-11] MEDS: LIDOCAINE 5% PATCH 1 PATCH TRANSDERM (08:26)
[2024-12-11] MEDS: LOSARTAN POTASSIUM 50 MG TABLET PO (08:26)
[2024-12-11] MEDS: NICOTINE (*PBKC) 21 MG PATCH 1 PATCH TRANSDERM (08:26)
[2024-12-11] MEDS: ENOXAPARIN 40 MG/0.4 ML SYRINGE SUB-Q (08:26)
[2024-12-11] MEDS: levoFLOXacin 500 MG/D5W 100 ML 500 MG/100 ML BAG 100 MG IVPB (08:27)
--- NOTE | 2024-12-11 09:26 | PCPTNOTE ---
Was going to attempted patient for PT, per OT, just got done working with patient and had to lay patient back down due to pain. Per OT, patient will not tolerate working with PT at this time.
[2024-12-11] MEDS: oxyCODONE HCL (*CRX) 10 MG TAB SR 12HR PO ×2 (11:13→20:25)
--- NOTE | 2024-12-11 13:43 | P.PNIM_ITS ---
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 * continue TLSO brace per Neurosurgery recommendation * lidocaine patch ordered * patient will need DEXA scan for osteoporosis (3) Chronic pain: Code(s): G89.29 - Other chronic pain Status: Acute Assessment and Plan: * Continue pain control * Continue PT and OT (4) Pneumonia: Code(s): J18.9 - Pneumonia, unspecified organism Status: Acute Assessment and Plan: * CXR showing opacities * Continue Levaquin * Continue to wean O2 for a sat greater than 92%, currently on 2L NC (5) Leukocytosis: Code(s): D72.829 - Elevated white blood cell count, unspecified Status: Acute Assessment and Plan: * urine culture negative * blood culture showing no growth to date on preliminary read * IV Levaquin switched to oral today * CXR showing opacities 12/11 * WBC now down to 9.1 Time Spent With Patient Time with patient: 25 - 35 minutes Subjective Date/time seen: 12/11/24 13:43 Interval history: Interval history: This is a 63-year-old female with a significant past medical history of chronic back pain who presents to the hospital for evaluation of acute back pain after falling out of bed. Workup in the hospital included a lumbar spine CT which showed an acute L2 burst fracture, posterior fusion at T12-L1, thoracolumbar levoscoliosis, mild lumbar spondylosis. Chest x-ray showing airspace opacities at the right lung base consistent with atelectasis versus pneumonia, small right pleural effusion. Initial labs showed a white blood cell count of 18.1, RBC 4.02, blood sugars 123-161. Blood culture showing no growth to date on preliminary read. Urine culture was negative. Patient currently on 2-4 L nasal cannula. She was started on Levaquin. 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 Subjective: Patient denies any fever, chills, nausea, vomiting, diarrhea, abdominal pain, chest pain, shortness a breath. She is currently on 2 L nasal cannula. She has notable crackles to the right lower lobe. Her Levaquin was switched to oral dosing today. 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 Labs and imaging reviewed. Review of Systems Review of Systems: 12 systems were reviewed and are negativ e except for as per HPI. Exam Narrative: General: In no acute distress, well nourished Head: atraumatic, no encephalopathy Eyes: PERRLA, sclera clear ENT: moist mucous membranes, nasal passages clear Neck: supple, no JVD, no adenopathy, trachea midline Cardiac: Normal S1 and S2. No murmur, gallops or friction rubs, peripheral pulses intact. Respiratory: Crackles right lower lobe, no adventitious lung sounds currently on 2L Gastrointestinal: soft, non-distended, non-tender, normoactive bowel sounds. : voiding without difficulty. Extremities: moves all extremities well, no edema Skin: clean, dry, intact. No wounds or lesions. Neuro: Alert and oriented x4, cranial nerves intact, no neuro deficits. Psych: normal mood, normal affect, interactive Objective Data Vital Signs Vital Signs: Vital Signs - 24 hr 12/10/24 16:00 12/10/24 20:00 12/10/24 20:00 Temperature 97.7 F 97.0 F L Pulse Rate 103 H 104 H Respiratory Rate 17 18 Blood Pressure 128/58 L 112/67 Pulse Oximetry 98 97 97 Oxygen Delivery Nasal Cannula Oxygen Flow Rate 4 Fraction of Inspired Oxygen 12/11/24 00:50 12/11/24 04:55 12/11/24 08:00 Temperature 98.1 F 97.2 F L 97.0 F L Pulse Rate 110 H 106 H 95 Respiratory Rate 18 20 18 Blood Pressure 114/52 L 112/87 109/70 Pulse Oximetry 97 99 94 Oxygen Delivery Oxygen Flow Rate Fraction of Inspired Oxygen 12/11/24 08:03 12/11/24 08:34 12/11/24 08:50 Temperature Pulse Rate 113 H Respiratory Rate 24 H Blood Pressure Pulse Oximetry 95 95 Oxygen Delivery Nasal Cannula Nasal Cannula Nasal Cannula Oxygen Flow Rate 4 4 2 Fraction of Inspired Oxygen 36 12/11/24 12:00 Temperature 97.6 F Pulse Rate 107 H Respiratory Rate 18 Blood Pressure 120/43 L Pulse Oximetry 99 Oxygen Delivery Oxygen Flow Rate Fraction of Inspired Oxygen Intake/Output Intake/Output: Intake & Output 12/08/24 12/09/24 12/10/24 12/11/24 23:59 23:59 23:59 23:59 Intake Total 1400.0 2285.5 1310 937 Output Total 1500 1675 2775 2100 Balance -100.0 610.5 -1465 1163 Meds/Results Medications: Active Medications Generic Name Dose Route Start Last Admin Trade Name Freq PRN Reason Stop Dose Admin Acetaminophen 650 mg 12/07/24 17:15 Acetaminophen 325 Mg Tablet PO Q4H PRN Mild Pain (1-3) or Fever Cyclobenzaprine HCl 10 mg 12/07/24 16:00 12/07/24 16:49 Cyclobenzaprine Hcl 10 Mg Tablet PO 10 mg Q8H LIBRA Administration Diazepam 5 mg 12/11/24 10:39 Diazepam (*Crx) 5 Mg Tablet PO BID PRN Anxiety Docusate Sodium 100 mg 12/08/24 09:00 12/11/24 08:26 Docusate Sodium 100 Mg Capsule PO 100 mg BID LIBRA Administration Enoxaparin Sodium 40 mg 12/08/24 09:00 12/11/24 08:26 Enoxaparin 40 Mg/0.4 Ml Syringe SUB-Q 40 mg DAILY LIBRA Administration Gabapentin 600 mg 12/09/24 17:00 12/11/24 08:26 Gabapentin 300 Mg Capsule PO 600 mg BID LIBRA Administration Hydrochlorothiazide 12.5 mg 12/08/24 09:00 12/11/24 08:26 Hydrochlorothiazide 12.5 Mg Capsule PO 12.5 mg QAM LIBRA Administration Hydromorphone HCl 0.5 mg 12/07/24 19:45 12/07/24 19:58 Hydromorphone Hcl Inj (*Crx) 1 Mg/Ml Syr IV PUSH 0.5 mg Q3H PRN Administration Pain Rated 7-10 Levofloxacin 750 mg 12/12/24 09:00 Levofloxacin 750 Mg Tablet PO DAILY [facility] Lidocaine 1 patch 12/07/24 20:05 12/11/24 08:26 Lidocaine 5% Patch TRANSDERM 1 patch DAILY LIBRA Administration Losartan Potassium 50 mg 12/08/24 09:00 12/11/24 08:26 Losartan Potassium 50 Mg Tablet PO 50 mg QAM LIBRA Administration Morphine Sulfate 15 mg 12/09/24 03:00 12/11/24 08:26 Morphine Sulfate (*Crx) 15 Mg Tab Ir PO 15 mg Q6H LIBRA Administration Naloxone HCl 0.1 mg 12/09/24 14:47 Naloxone Hcl 0.4 Mg/Ml Vial IV PUSH Q5MIN PRN Sedation Nicotine 1 patch 12/07/24 20:05 12/11/24 08:26 Nicotine (*Pbkc) 21 Mg Patch TRANSDERM 1 patch DAILY LIBRA Administration Oxycodone HCl 10 mg 12/11/24 10:40 12/11/24 11:13 Oxycodone Hcl (*Crx) 10 Mg Tab Sr 12hr PO 10 mg Q12HR LIBRA Administration Oxycodone/Acetaminophen 1 tablet 12/11/24 10:36 Oxycodone/Acetaminophen (*Crx) 5-325 Mg Tablet PO Q4H PRN Pain Rated 4-6 Oxycodone/Acetaminophen 1 tab 12/11/24 10:36 Oxycodone/Acetaminophen (*Crx) 10-325 Mg Tablet PO Q4H PRN Pain Rated 7-10 Pantoprazole Sodium 40 mg 12/08/24 09:00 12/11/24 08:26 Pantoprazole 40 Mg Tablet PO 40 mg DAILY LIRBA Administration Rosuvastatin Calcium 40 mg 12/07/24 21:00 12/10/24 21:06 Rosuvastatin 20 Mg Tablet PO 40 mg QHS LIBRA Administration Sodium Chloride 10 ml 12/10/24 22:00 12/11/24 05:28 Saline Lock Flush IV PUSH 10 ml Q8HR LIBRA Administration Sodium Chloride 10 ml 12/10/24 15:25 Saline Lock Flush IV PUSH PRN PRN Flush Sodium Chloride 20 ml 12/10/24 15:25 Saline Lock Flush IV PUSH PRN PRN after blood draws Radiology Results: ITS Impressions Lumbar Spine CT 12/07/24 10:50 IMPRESSION: 1. Acute L2 burst fracture. 2. Mild lumbar spondylosis. 3. Posterior fusion procedure at T12-L1. 4. Thoracolumbar levoscoliosis. Chest X-Ray 12/11/24 11:50 IMPRESSION: 1. Airspace opacities at right lung base, consistent with atelectasis versus pneumonia. 2. Small right pleural effusion. Labs Labs: Laboratory Results - last 24 hr 12/11/24 05:29 WBC 9.1 RBC 3.44 L Hgb 11.2 L Hct 32.9 L MCV 95.6 MCH 32.6 MCHC 34.0 RDW 12.3 Plt Count 202 MPV 8.8 Sodium 135 L Potassium 3.5 Chloride 98 Carbon Dioxide 30 Anion Gap 7 BUN 7 Creatinine 0.61 L Estim Creat Clear Calc 70 Estimated GFR > 60 Glucose 106 Calcium 8.7 Total Bilirubin 0.7 AST 40 H ALT 24 Alkaline Phosphatase 152 H Total Protein 7.0 Albumin 3.4 L Quality VTE Prophylaxis VTE prophylaxis: mechanical ordered and pharmacologic ordered
[2024-12-11] MEDS: CYCLOBENZAPRINE HCL 10 MG TABLET PO (17:02)
[2024-12-11] MEDS: ROSUVASTATIN 20 MG TABLET 40 MG PO (20:25)
[2024-12-12] VITALS: BP 111/61; PULSE 106; RESP 20; TEMP 36.4; O2SAT 92
[2024-12-12] MEDS: CYCLOBENZAPRINE HCL 10 MG TABLET PO ×2 (00:11→08:52)
[2024-12-12] MEDS: MORPHINE SULFATE (*CRX) 15 MG TAB IR PO (01:42)
[2024-12-12] MEDS: diazePAM (*CRX) 5 MG TABLET PO (03:03)
[2024-12-12 04:00] VITALS: BP 107/66; PULSE 110; RESP 20; TEMP 36.7; O2SAT 94
[2024-12-12] MEDS: HYDROmorphone HCL INJ (*CRX) 1 MG/ML SYR 0.5 MG IV PUSH (06:10)
[2024-12-12] MEDS: SALINE LOCK FLUSH 10 ML IV PUSH (06:15)
[2024-12-12 08:00] VITALS: BP 110/64; PULSE 99; RESP 19; TEMP 36.8; O2SAT 97
[2024-12-12] MEDS: ENOXAPARIN 40 MG/0.4 ML SYRINGE SUB-Q (08:51)
[2024-12-12 08:52] VITALS: O2SAT 92
[2024-12-12] MEDS: GABAPENTIN 300 MG CAPSULE 600 MG PO (08:52)
[2024-12-12] MEDS: levoFLOXacin 750 MG TABLET PO (08:52)
[2024-12-12] MEDS: oxyCODONE HCL (*CRX) 10 MG TAB SR 12HR PO (08:52)
[2024-12-12] MEDS: DOCUSATE SODIUM 100 MG CAPSULE PO (08:52)
[2024-12-12] MEDS: PANTOPRAZOLE 40 MG TABLET PO (08:52)
[2024-12-12] MEDS: hydroCHLOROthiazide 12.5 MG CAPSULE PO (08:52)
[2024-12-12] MEDS: LIDOCAINE 5% PATCH 1 PATCH TRANSDERM (08:52)
[2024-12-12] MEDS: LOSARTAN POTASSIUM 50 MG TABLET PO (08:52)
--- NOTE | 2024-12-12 09:25 | PCOTNOTE ---
Attempted to see Patient at this time. Per RN, Patient has received all pain medications allowed at this time. Patient adamently refused any and all activity. Patient states she is in severe pain, nothing is working and not moving. Therapist discussed the importance of getting out of the bed, Patient seems aggravated, RN notified and aware .
--- NOTE | 2024-12-12 11:00 | P.DS_ITS ---
DS: Admitting Diagnosis Discharge Date 12/12/24 DS: Summary Time Spent with Patient Time attestation: Total time spent providing and/or coordinating discharge services: DS: Data Data Completed and Pending Labs on day of discharge: Preliminary micro results at discharge 12/08/24 10:22 Blood Culture - Preliminary Blood 12/08/24 10:05 Blood Culture - Preliminary Blood Discharge Plan Discharge Attending physician on discharge: Marie Yan Consulting providers: Jose Delacruz Discharging Clinician: Lora Sarmiento Anticipated Discharge Date/Time: 12/12/24 10:55 Patient Disposition: SNF Activity: as tolerated Diet: as tolerated and regular Discharge Instructions: * follow-up with pain management as soon as possible * continue to wear your TLSO brace while out of bed Patient Language: [place]uran Stand Alone Forms: General Discharge Information Follow-up/Referrals: Munir,ARMINDA Cunningham [Primary Care Provider] - 1 Week Discharge Medications: New methocarbamol 750 mg tablet 750 mg PO TID PRN (Reason: muscle spasm) Qty: 30 0RF lidocaine 5 % adhesive patch,medicated 1 patch topical DAILY Qty: 15 0RF Rx Instructions: leave on most painful area for up to 12 hrs morphine 15 mg Tablet 15 mg PO Q6H PRN (Reason: Pain Rated 4-10) Qty: 40 0RF oxycodone [OxyContin] 10 mg Tablet,Oral Only,Ext.Rel.12 Hr 10 mg PO Q12HR Qty: 20 0RF levofloxacin 750 mg tablet 750 mg PO DAILY Qty: 3 0RF lidocaine [Lidoderm] 5 % Adhesive Patch,Medicated 1 patch transdermal DAILY Qty: 20 0RF gabapentin [Neurontin] 300 mg Capsule 600 mg PO BID Qty: 60 0RF Continued cyclobenzaprine 10 mg tablet 10 mg PO PRN pantoprazole 40 mg tablet,delayed release (DR/EC) 40 mg PO DAILY rosuvastatin 40 mg tablet 40 mg PO QHS losartan-hydrochlorothiazide 50-12.5 mg tablet 1 tablet PO DAILY Discontinued morphine 10 mg capsule,extend.release pellets 10 mg PO TID Date of admission: 12/10/24 14:06 Primary Care Provider: MunirMarisa Admitting Provider: Valdez Schaffer Attending physician on admission: Lora Sarmiento Condition: Improved
[2024-12-12] MEDS: NEOMYCIN/POLYMYXIN/BACITRACIN OINTMENT PACKET 1 PACKET (13:27)
--- NOTE | 2024-12-12 14:43 | PCPTNOTE ---
Attempted to see patient for PT, however patient declined due to anticipated discharge.
== END 2024-12-12 16:00 | DRG 347 ==
LOC: ANHED 13:18 → ANH3MEDSUR 15:04 → ANH3MED 17:52
PROVIDERS: Internal Medicine; Nurse Practitioner Gerontology; Admitting Provider General Practice; Emergency Provider Emergency Medicine; PCP Physician Assistant; Visit Provider Nurse Practitioner Acute Care
DX: S32.021A Stable burst fracture of second lumbar vertebra, initial encounter for closed fracture (principal); W06.XXXA Fall from bed, initial encounter; J18.9 Pneumonia, unspecified organism; D72.829 Elevated white blood cell count, unspecified; F17.210 Nicotine dependence, cigarettes, uncomplicated; G89.29 Other chronic pain; M54.9 Dorsalgia, unspecified
CPT/HCPCS: 36415; 36569; 71045; 72131; 80048; 80053; 82948; 85025; 85027; 87040; 87086; 96374; 96375; 96376; 97110; 97162; 97166; 97530; 99285; A9270; C1751; G0378; J1171; J1650; J1956; J2270; J3360; J7030; J7040

== ENCOUNTER 2025-04-17 15:34 | Outpatient (CLI) | payer OTHER, SELFPAY ==
--- NOTE | ~2025-04-17 | MR_ITS ---
MRI of the lumbar spine Clinical History: Radiculopathy Technique: Axial T2-weighted images, and sagittal T1-weighted, T2-weighted, and T2 fat-sat images wer e acquired. Following intravenous administration of 15 cc MultiHance gadolinium, T1-weighted fat-sat imaging was performed in the axial and sagittal planes. COMPARISON: Lumbar spine CT dated 12/07/2024 Findings: There is severe compression fracture deformity of L2, with progressive loss of height since 12/07/2024, and mild marrow edema. There is chronic compression fracture deformity of T12, with poste rior fixation hardware at the visualized lower thoracic spine, as seen on prior CT. No other bone mar row signal abnormality seen. At L1-L2, there is no disc bulge or herniation. There is mild to moderate facet arthropathy. No centr al canal stenosis or definite neural foraminal narrowing. At L2-L3, there is minimal disc bulge and mild facet arthropathy. No central canal stenosis or neural foraminal narrowing. At L3-L4, there is no disc bulge or herniation. There is mild facet arthropathy. No central canal ezra nosis or neural foraminal narrowing. At L4-L5, there is no disc bulge or herniation. There is mild facet arthropathy. No central canal ezra nosis or neural foraminal narrowing. At L5-S1, there is mild disc bulge with mild facet arthropathy. No central canal stenosis or neural f oraminal narrowing. Paravertebral soft tissues are unremarkable. No abnormal postcontrast enhancement identified. Impression: Moderate to severe L2 compression fracture, with progressive loss of height since 12/07/2024, likely a subacute basis given mild central marrow edema present. Posterior fusion at the lower thoracic spine with chronic compression fracture of T12, unchanged from prior CT. Minimal degenerative spondylosis in the lumbar spine. Reviewed, dictated and finalized at [facility]. Impression: Moderate to severe L2 compression fracture, with progressive loss of height sin ce 12/07/2024, likely a subacute basis given mild central marrow edema present. Posterior fusion at the lower thoracic spine with chronic compression fracture of T12, unchanged from prior CT. Minimal degenerative spondylosis in the lumbar spine.
== END 2025-04-17 15:35 | disposition home or self-care (01) ==
PROVIDERS: Visit Provider Nurse Practitioner Family
DX: M47.26 Other spondylosis with radiculopathy, lumbar region (principal); Z98.1 Arthrodesis status; S32.020D Wedge compression fracture of second lumbar vertebra, subsequent encounter for fracture with routine healing; X58.XXXD Exposure to other specified factors, subsequent encounter
CPT/HCPCS: 72158; A9577